=== PATIENT | male | born 1970 | race Hispanic/Latino ===

== ENCOUNTER → 2022-11-18 10:16 | Outpatient (CLI) | payer OTHER, SELFPAY | PROVIDERS: Family Provider Nurse Practitioner Family; PCP Family Medicine; Referring Provider Family Medicine; Visit Provider Surgery | DX: I83.023 Varicose veins of left lower extremity with ulcer of ankle (principal); L97.322 Non-pressure chronic ulcer of left ankle with fat layer exposed; M25.572 Pain in left ankle and joints of left foot | CPT/HCPCS: 11042; 87070; 87075; 87077; 87205; 99203; 99213 ==

== ENCOUNTER → 2022-11-23 10:17 | Outpatient (CLI) | payer OTHER, MEDICAID, SELFPAY | PROVIDERS: Family Provider Nurse Practitioner Family; PCP Family Medicine; Referring Provider Nurse Practitioner Family; Visit Provider Surgery | DX: I87.2 Venous insufficiency (chronic) (peripheral) (principal); L97.322 Non-pressure chronic ulcer of left ankle with fat layer exposed | CPT/HCPCS: 29581 ==

== ENCOUNTER → 2022-11-25 10:08 | Outpatient (CLI) | payer OTHER, MEDICAID, SELFPAY | PROVIDERS: Family Provider Nurse Practitioner Family; PCP Family Medicine; Referring Provider Nurse Practitioner Family; Visit Provider Surgery | DX: I83.023 Varicose veins of left lower extremity with ulcer of ankle (principal); L97.322 Non-pressure chronic ulcer of left ankle with fat layer exposed | CPT/HCPCS: 11042 ==

== ENCOUNTER → 2022-12-03 10:52 | Outpatient (CLI) | payer OTHER, SELFPAY | PROVIDERS: Family Provider Nurse Practitioner Family; PCP Family Medicine; Referring Provider Family Medicine; Visit Provider Physician Assistant | DX: S91.002A Unspecified open wound, left ankle, initial encounter (principal); I83.023 Varicose veins of left lower extremity with ulcer of ankle; I87.2 Venous insufficiency (chronic) (peripheral); L97.322 Non-pressure chronic ulcer of left ankle with fat layer exposed; M25.572 Pain in left ankle and joints of left foot | CPT/HCPCS: 11042; 73610; 87070; 87075; 87077; 87186; 87205; 99214 ==

== ENCOUNTER → 2022-12-03 12:04 | Outpatient (CLI) | payer OTHER, MEDICAID, SELFPAY ==
--- NOTE | 2022-12-03 12:05 | DI.RAD.S_ITS ---
PROCEDURE: XR ANKLE LT MIN 3V INDICATIONS: non-healing ulcer on left lower leg/ankle TECHNIQUE: 3 views of the ankle were acquired. COMPARISON: None. FINDINGS: Bones: No fractures or dislocations. Ankle mortise is normally aligned. No suspicious bony lesions. Soft tissues: No tibiotalar joint effusion. Achilles tendon appears normal. IMPRESSION: Normal left ankle Dictated by: James Lockhart M.D. on 12/03/2022 at 14:41 Approved by: James Lockhart M.D. on 12/03/2022 at 14:43
== END ==
PROVIDERS: Family Provider Nurse Practitioner Family; PCP Family Medicine; Referring Provider Physician Assistant; Visit Provider Physician Assistant
DX: S91.002A Unspecified open wound, left ankle, initial encounter (principal)
CPT/HCPCS: 73610

== ENCOUNTER → 2022-12-10 10:12 | Outpatient (CLI) | payer OTHER, MEDICAID, SELFPAY | PROVIDERS: Family Provider Nurse Practitioner Family; PCP Family Medicine; Referring Provider Nurse Practitioner Family; Visit Provider Surgery | DX: L97.322 Non-pressure chronic ulcer of left ankle with fat layer exposed (principal); E11.622 Type 2 diabetes mellitus with other skin ulcer; I83.023 Varicose veins of left lower extremity with ulcer of ankle; R60.0 Localized edema | CPT/HCPCS: 11042; 99214 ==

== ENCOUNTER → 2022-12-21 13:28 | Outpatient (CLI) | payer OTHER, MEDICAID, SELFPAY | PROVIDERS: Family Provider Nurse Practitioner Family; PCP Family Medicine; Referring Provider Nurse Practitioner Family; Visit Provider Surgery | DX: I83.023 Varicose veins of left lower extremity with ulcer of ankle (principal); L97.322 Non-pressure chronic ulcer of left ankle with fat layer exposed; E11.622 Type 2 diabetes mellitus with other skin ulcer; M25.572 Pain in left ankle and joints of left foot; R60.0 Localized edema | CPT/HCPCS: 11042 ==

== ENCOUNTER → 2022-12-27 08:00 | Outpatient (CLI) | payer OTHER, MEDICAID, SELFPAY ==
[2022-12-27 09:10] LABS: Hemoglobin A1C% w Est Avg Glu 9.1 % (4.0-6.0)
== END ==
PROVIDERS: Family Provider Nurse Practitioner Family; PCP Family Medicine; Referring Provider Surgery; Visit Provider Surgery
DX: E11.9 Type 2 diabetes mellitus without complications (principal); I83.009 Varicose veins of unspecified lower extremity with ulcer of unspecified site
CPT/HCPCS: 36415; 83036

== ENCOUNTER → 2023-01-03 08:35 | Outpatient (CLI) | payer OTHER, MEDICAID, SELFPAY | PROVIDERS: Family Provider Nurse Practitioner Family; PCP Family Medicine; Referring Provider Nurse Practitioner Family; Visit Provider Surgery | DX: L97.322 Non-pressure chronic ulcer of left ankle with fat layer exposed (principal); I87.2 Venous insufficiency (chronic) (peripheral); R60.0 Localized edema; E11.621 Type 2 diabetes mellitus with foot ulcer; F17.210 Nicotine dependence, cigarettes, uncomplicated | CPT/HCPCS: 11042; 99213 ==

== ENCOUNTER → 2023-01-21 09:02 | Outpatient (CLI) | payer OTHER, MEDICAID, SELFPAY | PROVIDERS: Family Provider Nurse Practitioner Family; PCP Family Medicine; Referring Provider Nurse Practitioner Family; Visit Provider Surgery | DX: I83.023 Varicose veins of left lower extremity with ulcer of ankle (principal); L97.322 Non-pressure chronic ulcer of left ankle with fat layer exposed | CPT/HCPCS: 29581; 99213 ==

== ENCOUNTER → 2023-01-27 09:52 | Outpatient (CLI) | payer OTHER, MEDICAID, SELFPAY | PROVIDERS: Family Provider Nurse Practitioner Family; PCP Family Medicine; Referring Provider Nurse Practitioner Family; Visit Provider Surgery | DX: I83.023 Varicose veins of left lower extremity with ulcer of ankle (principal) | CPT/HCPCS: 29581; 99213 ==

== ENCOUNTER 2024-08-31 10:24 | Outpatient (CLI) | payer OTHER, SELFPAY ==
--- NOTE | 2024-08-31 | PATH_ITS ---
Note [facility] Accession Number: [id number] TESTS RESULT FLAG UNITS REF RANGE LAB Clinician Provided Cytology Information No. of containers..01 Other (Miscellaneous) Source: ASCITES DIAGNOSIS: ASCITES NEGATIVE FOR MALIGNANT CELLS. REACTIVE MESOTHELIAL CELLS ARE PRESENT. THIS INTERPRETATION INCLUDES EVALUATION OF A CELL BLOCK. Pathologist ICD10: K70.31 Signed out by: Jessica Lagos DO, Pathologist NPI- [id number] Performed by: Derek Dill, House Director ([facility]) Gross description: 50 CC, YELLOW, CLOUDY RECEIVED: FRESH IN BLUE CAP CONTAINER.VO /VDU 09/03/2024 0853 Local FLAG LEGEND: L-Low Normal,H-High Normal,LL-Alert Low,HH-Alert High <-Panic Low,>-Panic High,A-Abnormal,AA-Critical Abnormal Performed at: 01 =Z [facility] [address], [place] [address] Ventura Holcomb MD, Performed at: 01 [facility] [address], [place], [place] [id number] MD Ventura Holcomb MD Phone: [phone]
--- NOTE | 2024-08-31 10:26 | DI.US.S_ITS ---
PROCEDURE: US PARACENTESIS W/ALBUMIN INDICATIONS: CIRRHOSIS/ASCITES - DIAGNOSTIC CYTOLOGY TECHNIQUE: The indications, alternatives, benefits, risks, and complications of the procedure were explained to the patient. Written informed consent was obtained and placed in the chart. The abdomen and pelvis were examined sonographically, and an appropriate site was chosen for paracentesis. The skin was prepared and draped in the usual sterile fashion, and 1% lidocaine was infiltrated from the skin down through the peritoneal surface. A 19-gauge catheter-covered needle was then introduced into the peritoneal space, the catheter was advanced and the needle was withdrawn, and thereafter peritoneal fluid was withdrawn. The catheter was then removed and a dressing was applied. The fluid was discarded if the clinician did not order diagnostic testing of the fluid. COMPARISON: None. FINDINGS: Access site: Right lower quadrant Needle: One-Step centesis catheter with introducer needle. Fluid volume and description: 3.9 L clear yellow fluid Fluid sent for diagnostic testing: Yes, labs per ordering provider Medications: 1% lidocaine for local anaesthesia. Complications: None. IMPRESSION: Successful ultrasound-guided paracentesis. Approved by: Josias Falk M.D. on 08/31/2024 at 16:01
[2024-08-31 12:10] VITALS: BP 151/75; PULSE 88; RESP 23; TEMP 36.6; O2SAT 99
[2024-08-31 13:10] VITALS: BP 146/76; PULSE 85; RESP 22; O2SAT 99
[2024-08-31 13:15] VITALS: BP 144/68; PULSE 86; RESP 22; O2SAT 98
[2024-08-31 13:30] VITALS: BP 145/67; PULSE 86; RESP 20; O2SAT 98
[2024-08-31 13:45] VITALS: BP 151/70; PULSE 88; RESP 20; O2SAT 99
[2024-08-31 13:50] VITALS: BP 151/70; PULSE 84; RESP 20; O2SAT 98
== END 2024-08-31 14:05 | disposition home or self-care (01) ==
PROVIDERS: Family Provider Nurse Practitioner Family; PCP Family Medicine; Referring Provider Physician Assistant; Visit Provider Physician Assistant
DX: K70.31 Alcoholic cirrhosis of liver with ascites (principal)
CPT/HCPCS: 49083

== ENCOUNTER 2024-09-17 08:15 | Inpatient (IN) | payer OTHER, SELFPAY ==
[2024-09-17] VITALS (32 sets, daily range): BP systolic 99–161; BP diastolic 55–85; PULSE 66–81; RESP 17–28; TEMP 36.7–36.9; O2SAT 95–100; BMI 27.8
--- NOTE | 2024-09-17 08:47 | ED.GENADULT ---
HPI - General Adult General Chief complaint: Abdominal Pain Stated complaint: pain, nausea, AMBROSE, swelling abd- came from imaging Time Seen by Provider: 09/17/24 08:47 Source: patient Limitations: no limitations History of Present Illness HPI narrative: Pt is a 54 y/o m with history of cirrhosis and ascites, presenting from scheduled outpatient paracentesis from radiology due to concern for acute illness. PAtient endorsing severe abdominal pain and distension. He has been having diffuse edema in his lower extremities and groin as well when he is standing for a long time. Denies fevers, does have some nausea without vomiting. No chest pain or shortness of breath. Related Data Allergies Allergy/AdvReac Type Severity Reaction Status Date / Time lidocaine [From LidoPatch] AdvReac Mild Rash Verified 09/17/24 08:49 menthol [From LidoPatch] AdvReac Mild Rash Verified 09/17/24 08:49 Patient History Social History Smoking Status: Current some day smoker Exam Initial Vital Signs Initial Vital Signs: Vital Signs Pulse Rate 81 09/17/24 08:26 Pulse Oximetry 100 09/17/24 08:26 Const General: cooperative, No acute distress and ill appearing [facility] Head: normocephalic and atraumatic Eyes General: Yes appearance normal, both eyes and all related structures Resp Effort & Inspection: normal respiratory effort and no respiratory distress Cardio Rate: regular rate Rhythm: regular rhythm GI Inspection: distended Palpation: No mass, tender and ascites Testes: no testicular tenderness Skin General: warm Neuro Cognition: normal cognition Extrem General: full ROM Psych Mental Status: mental status grossly normal Course Orders Ordered: ED Orders 09/17/24 16:13 US abdomen limited Stat 09/17/24 18:00 Complete Blood Count AUTO DIFF Stat Lactate (Lactic Acid) Stat Ceftriaxone Sodium 1,000 mg/ (Sodium Chloride) 100 mls @ 200 mls/hr IV Q24H DOROTA Last Admin: 09/17/24 20:19 Dose: 200 mls/hr Documented By: NICHOLAS Naloxone HCl (Naloxone 0.4 Mg/Ml Vial) 0.2 mg IV Q2MIN PRN PRN Reason: Opiate Reversal Ondansetron HCl (Ondansetron 4 Mg/2 Ml Inj) 4 mg IV NOW PRN PRN Reason: Nausea And Vomiting Last Admin: 09/17/24 09:35 Dose: 4 mg Documented By: MARISOL Ondansetron HCl (Ondansetron 4 Mg Odt) 4 mg PO NOW PRN PRN Reason: Nausea And Vomiting Oxycodone HCl (Oxycodone Ir 5 Mg Tablet) 5 mg PO Q3HR PRN PRN Reason: Pain, Moderate (4-6) Oxycodone HCl (Oxycodone Ir 10 Mg Tablet) 10 mg PO Q3HR PRN PRN Reason: Pain, Severe (7-10) Discontinued Medications Diphenhydramine HCl (Diphenhydramine 50 Mg/Ml Vial) 25 mg IV NOW ONE Stop: 09/17/24 18:17 Last Admin: 09/17/24 18:28 Dose: 25 mg Documented By: MARISOL Vancomycin HCl 1,000 mg/ (Sodium Chloride) 250 mls @ 250 mls/hr IV NOW ONE Stop: 09/17/24 17:25 Last Infusion: 09/17/24 20:21 Dose: Infused Documented By: Admin: 09/17/24 19:03 Dose: 250 mls/hr Documented By: MARISOL Piperacillin Sod/Tazobactam (Sod 4.5 gm/ Sodium Chloride) 100 mls @ 200 mls/hr IV NOW ONE Stop: 09/17/24 17:25 Last Infusion: 09/17/24 19:06 Dose: Infused Documented By: Admin: 09/17/24 18:01 Dose: 200 mls/hr Documented By: MARISOL Lidocaine/Epinephrine (Lidocaine 2% W/Epi Inj 10 Ml Vial) 10 ml INJ NOW ONE Stop: 09/17/24 09:08 Last Admin: 09/17/24 09:35 Dose: 10 ml Documented By: MARISOL Morphine Sulfate (Morphine 4 Mg/Ml Inj) 4 mg IV NOW ONE Stop: 09/17/24 09:06 Last Admin: 09/17/24 09:35 Dose: 4 mg Documented By: MARISOL Morphine Sulfate (Morphine 4 Mg/Ml Inj) 4 mg IV NOW ONE Stop: 09/17/24 15:14 Last Admin: 09/17/24 15:41 Dose: 4 mg Documented By: MARISOL Ondansetron HCl (Ondansetron 4 Mg/2 Ml Inj) 4 mg IV NOW ONE Stop: 09/17/24 18:13 Last Admin: 09/17/24 18:28 Dose: 4 mg Documented By: MARISOL Vital Signs Vital signs: Vital Signs - 8 hr 09/17/24 13:25 09/17/24 13:25 09/17/24 13:30 Temperature Pulse Rate 76 Respiratory Rate Blood Pressure 99/56 L 102/56 L Pulse Oximetry 100 Oxygen Delivery Method Room Air 09/17/24 13:30 09/17/24 14:00 09/17/24 14:00 Temperature Pulse Rate 72 79 Respiratory Rate 17 19 Blood Pressure 102/55 L Pulse Oximetry 98 99 Oxygen Delivery Method 09/17/24 14:30 09/17/24 14:30 09/17/24 15:00 Temperature Pulse Rate 77 Respiratory Rate Blood Pressure 117/59 L 126/56 L Pulse Oximetry 100 Oxygen Delivery Method 09/17/24 15:00 09/17/24 15:26 09/17/24 15:26 Temperature Pulse Rate 80 78 Respiratory Rate 20 22 Blood Pressure 117/58 L Pulse Oximetry 95 100 Oxygen Delivery Method Room Air 09/17/24 15:30 09/17/24 15:30 09/17/24 16:00 Temperature Pulse Rate 74 Respiratory Rate 19 Blood Pressure 117/56 L 113/59 L Pulse Oximetry 99 Oxygen Delivery Method 09/17/24 16:00 09/17/24 16:30 09/17/24 17:00 Temperature Pulse Rate 75 80 72 Respiratory Rate 19 25 H 17 Blood Pressure Pulse Oximetry 98 98 Oxygen Delivery Method 09/17/24 17:30 09/17/24 17:57 09/17/24 17:57 Temperature Pulse Rate 72 78 Respiratory Rate 20 20 Blood Pressure 112/58 L Pulse Oximetry 96 98 Oxygen Delivery Method 09/17/24 18:00 09/17/24 18:30 09/17/24 18:30 Temperature 98.5 F Pulse Rate 72 80 Respiratory Rate 22 Blood Pressure 127/64 Pulse Oximetry 97 97 Oxygen Delivery Method Medical Decision Making Differential Diagnosis Differential Diagnosis: SBP, ascites, cirrhosis, sepsis, UTI Medical Records Medical records reviewed: Yes I reviewed the patient's medical records. Medical records narrative: Cytology report from 08/31/2024 negative for malignant cells on ascitic fluid Lab Data Lab results reviewed: Yes I reviewed the patient's lab results. Lab results narrative: without leukocytosis, elevated lactate or inflammatory markers 09/17/24 18:00 09/17/24 09:58 Labs: Lab Results 09/17/24 09/17/24 09/17/24 Range/Units 08:38 08:38 08:38 WBC (4.5-11.0) X10^3/uL RBC (4.5-5.9) X10^6/uL Hgb (13.5-17.5) g/dL Hct (41-53) % MCV (80-100) fL MCH (26-34) PG MCHC (30-36) % RDW (11.6-14.8) % Plt Count (150-400) X10^3/uL Neut % (Auto) (50-75) % Lymph % (Auto) (25-40) % [place] % (Auto) (3-14) % Eos % (Auto) (2-4) % Baso % (Auto) (0-2) % Neut # (Auto) (7136-1847) /uL Lymph # (Auto) (3753-4285) /uL [place] # (Auto) (0-900) /uL Eos # (Auto) (0-450) /uL Baso # (Auto) (0-100) /uL Platelet Estimate RBC Morphology Anisocytosis Microcytosis ESR (0-15) MM/HR PT (9.4-12.5) SECONDS INR (0.9-1.3) APTT (25.1-36.5) SECONDS Sodium (137-145) mmol/L Potassium (3.4-5.1) mmol/L Chloride (98-107) mmol/L Carbon Dioxide (22-32) mmol/L BUN (9-20) mg/dL Creatinine (0.66-1.25) mg/dL Estimated GFR (>60) mL/min BUN/Creatinine Ratio (6-22) Glucose (70-99) mg/dL Lactate (0.7-2.1) mmol/L Calcium (8.4-10.2) mg/dL Total Bilirubin (0.2-1.3) mg/dL AST (17-59) IU/L ALT (<50) IU/L Alkaline Phosphatase (38-126) U/L C-Reactive Protein (<1.0) mg/dL NT-Pro-B Natriuret Pep (<125) pg/mL Total Protein (6.3-8.2) g/dL Albumin (3.5-5.0) g/dL Globulin (1.7-4.1) g/dL Albumin/Globulin Ratio (1.0-2.8) Lipase (23-300) U/L Procalcitonin (<0.5) ng/mL Urine Color Yellow Urine Appearance Cloudy Urine pH 6.5 (4.5-8.0) Ur Specific [place] 1.010 (1.000-1.035) Urine Protein Negative (Negative) Urine Glucose (UA) 1+ H (Negative) g/dL Urine Ketones Negative (NEGATIVE) Urine Occult Blood 1+ H (Negative) Urine Nitrate Negative (Negative) Urine Bilirubin Negative (NEGATIVE) Urine Urobilinogen 0.2 (0.2) E.U./dL Ur Leukocyte Esterase 3+ H (NEGATIVE) Urine RBC 0-1/hpf 0-1/hpf (0-5/HPF) Urine WBC 30-100/hpf H 30-100/hpf H (0-5/HPF) Ur Squamous Epith Cells None seen (0-5/HPF) Urine Bacteria (None) Ur Culture Indicated? Vol Urine Centrifuged 09/17/24 09/17/24 09/17/24 Range/Units 08:38 08:38 08:38 WBC (4.5-11.0) X10^3/uL RBC (4.5-5.9) X10^6/uL Hgb (13.5-17.5) g/dL Hct (41-53) % MCV (80-100) fL MCH (26-34) PG MCHC (30-36) % RDW (11.6-14.8) % Plt Count (150-400) X10^3/uL Neut % (Auto) (50-75) % Lymph % (Auto) (25-40) % [place] % (Auto) (3-14) % Eos % (Auto) (2-4) % Baso % (Auto) (0-2) % Neut # (Auto) (3642-0320) /uL Lymph # (Auto) (4367-5582) /uL [place] # (Auto) (0-900) /uL Eos # (Auto) (0-450) /uL Baso # (Auto) (0-100) /uL Platelet Estimate RBC Morphology Anisocytosis Microcytosis ESR (0-15) MM/HR PT (9.4-12.5) SECONDS INR (0.9-1.3) APTT (25.1-36.5) SECONDS Sodium (137-145) mmol/L Potassium (3.4-5.1) mmol/L Chloride (98-107) mmol/L Carbon Dioxide (22-32) mmol/L BUN (9-20) mg/dL Creatinine (0.66-1.25) mg/dL Estimated GFR (>60) mL/min BUN/Creatinine Ratio (6-22) Glucose (70-99) mg/dL Lactate (0.7-2.1) mmol/L Calcium (8.4-10.2) mg/dL Total Bilirubin (0.2-1.3) mg/dL AST (17-59) IU/L ALT (<50) IU/L Alkaline Phosphatase (38-126) U/L C-Reactive Protein (<1.0) mg/dL NT-Pro-B Natriuret Pep (<125) pg/mL Total Protein (6.3-8.2) g/dL Albumin (3.5-5.0) g/dL Globulin (1.7-4.1) g/dL Albumin/Globulin Ratio (1.0-2.8) Lipase (23-300) U/L Procalcitonin (<0.5) ng/mL Urine Color Urine Appearance Urine pH (4.5-8.0) Ur Specific [place] (1.000-1.035) Urine Protein (Negative) Urine Glucose (UA) (Negative) g/dL Urine Ketones (NEGATIVE) Urine Occult Blood (Negative) Urine Nitrate (Negative) Urine Bilirubin (NEGATIVE) Urine Urobilinogen (0.2) E.U./dL Ur Leukocyte Esterase (NEGATIVE) Urine RBC (0-5/HPF) Urine WBC (0-5/HPF) Ur Squamous Epith Cells None seen (0-5/HPF) Urine Bacteria Many (>30) H Many (>30) H (None) Ur Culture Indicated? Specimen cultured Vol Urine Centrifuged 10ml (spun) 10ml (spun) 09/17/24 09/17/24 09/17/24 Range/Units 08:53 09:58 18:00 WBC 8.6 8.5 9.0 (4.5-11.0) X10^3/uL RBC 4.54 4.56 4.66 (4.5-5.9) X10^6/uL Hgb 10.2 L 10.1 L 10.3 L (13.5-17.5) g/dL Hct 31.7 L 31.7 L 32.4 L (41-53) % MCV 69.8 L 69.6 L 69.4 L (80-100) fL MCH 22.4 L 22.2 L 22.0 L (26-34) PG MCHC 32.1 31.9 31.7 (30-36) % RDW 27.3 H 27.7 H 27.8 H (11.6-14.8) % Plt Count 113 L 116 L 108 L (150-400) X10^3/uL Neut % (Auto) 79.1 H 78.7 H 81.0 H (50-75) % Lymph % (Auto) 11.4 L 11.2 L 10.0 L (25-40) % [place] % (Auto) 7.9 7.8 7.1 (3-14) % Eos % (Auto) 1.2 L 1.5 L 1.4 L (2-4) % Baso % (Auto) 0.4 0.8 0.5 (0-2) % Neut # (Auto) 6800 6700 7300 H (8230-6407) /uL Lymph # (Auto) 1000 L 900 L 900 L (9613-3157) /uL [place] # (Auto) 700 700 600 (0-900) /uL Eos # (Auto) 100 100 100 (0-450) /uL Baso # (Auto) 0 100 0 (0-100) /uL Platelet Estimate Decreased on smear RBC Morphology Not Reportable See below Anisocytosis 2+ H 3+ H Microcytosis 2+ H ESR 18 H (0-15) MM/HR PT 17.2 H (9.4-12.5) SECONDS INR 1.5 H (0.9-1.3) APTT 37 H (25.1-36.5) SECONDS Sodium 127 L 128 L (137-145) mmol/L Potassium 4.3 4.4 (3.4-5.1) mmol/L Chloride 97 L 98 (98-107) mmol/L Carbon Dioxide 22 20 L (22-32) mmol/L BUN 6 L 6 L (9-20) mg/dL Creatinine 0.66 0.61 L (0.66-1.25) mg/dL Estimated GFR > 60 > 60 (>60) mL/min BUN/Creatinine Ratio 9.1 9.8 (6-22) Glucose 245 H 211 H (70-99) mg/dL Lactate 1.1 1.0 (0.7-2.1) mmol/L Calcium 8.7 8.7 (8.4-10.2) mg/dL Total Bilirubin 0.9 1.1 (0.2-1.3) mg/dL AST 45 47 (17-59) IU/L ALT 27 28 (<50) IU/L Alkaline Phosphatase 137 H 151 H (38-126) U/L C-Reactive Protein 0.5 (<1.0) mg/dL NT-Pro-B Natriuret Pep 60 (<125) pg/mL Total Protein 7.0 7.1 (6.3-8.2) g/dL Albumin 3.8 3.8 (3.5-5.0) g/dL Globulin 3.2 3.3 (1.7-4.1) g/dL Albumin/Globulin Ratio 1.2 1.2 (1.0-2.8) Lipase 85 (23-300) U/L Procalcitonin 0.078 (<0.5) ng/mL Urine Color Urine Appearance Urine pH (4.5-8.0) Ur Specific [place] (1.000-1.035) Urine Protein (Negative) Urine Glucose (UA) (Negative) g/dL Urine Ketones (NEGATIVE) Urine Occult Blood (Negative) Urine Nitrate (Negative) Urine Bilirubin (NEGATIVE) Urine Urobilinogen (0.2) E.U./dL Ur Leukocyte Esterase (NEGATIVE) Urine RBC (0-5/HPF) Urine WBC (0-5/HPF) Ur Squamous Epith Cells (0-5/HPF) Urine Bacteria (None) Ur Culture Indicated? Vol Urine Centrifuged Urine Dip Bedside Urine Glucose 500 mg/dl Bedside Urine Bilirubin - Negative Bedside Urine Ketone - Negative Urine Specific [place] 1.015 Bedside Urine Occult Blood + Bedside Urine pH 6.5 Bedside Urine Protein - Negative Bedside Urine Urobilinogen - Negative Bedside Urine Nitrite + Positive Bedside Urine Leukocytes +++ 500 Esterase Point of care testing: Urine Dip Bedside Urine Glucose 500 mg/dl Bedside Urine Bilirubin - Negative Bedside Urine Ketone - Negative Urine Specific [place] 1.015 Bedside Urine Occult Blood + Bedside Urine pH 6.5 Bedside Urine Protein - Negative Bedside Urine Urobilinogen - Negative Bedside Urine Nitrite + Positive Bedside Urine Leukocytes +++ [address] scan - abdomen/pelvis: Attestation: I personally reviewed and interpreted this imaging study as follows: My Impression: ct demonstrating ascites, without SBO, no signficant hydronephrosis Radiologist's Impression: [address] [address] [address] Scan Report Signed Patient: Kristan Daley MR#: [id number] : 1970 Acct:[id number] Age/Sex: 54 / M Date of Service: 09/17/24 Loc: ED Accession Number: [id number] Procedure: CT abdomen pelvis w con Ordering Provider: Renea Natarajan MD PROCEDURE: CT ABDOMEN PELVIS W CON INDICATIONS: Peritonitis TECHNIQUE: After the administration of intravenous contrast, axial sections acquired from the lung bases to the pubic symphysis. Coronal and sagittal reformats were performed. For radiation dose reduction, the following was used: automated exposure control, adjustment of mA and/or kV according to patient size. COMPARISON: [facility], CT, CT ANGIO CHEST PE, 05/27/2024, 20:34. FINDINGS: Image quality: Diagnostic. Lower Chest: No significant findings. ABDOMEN: Liver: Cirrhotic appearing liver is seen. No gross solid appearing hepatic lesion. Gallbladder: Gallbladder is surgically absent. Biliary ducts: No biliary dilation. Pancreas: No ductal dilation. Spleen: There is splenomegaly, no discrete splenic lesion. Adrenal Glands: No adrenal nodules. Kidneys and Ureters: No hydronephrosis. No solid mass. No complex renal cystic lesion which requires follow up. Stomach and Bowel: There is no bowel obstruction. No abnormal bowel wall thickening or mesenteric fat stranding. No abscess collection. Sigmoid diverticulosis without CT evidence of acute diverticulitis. Peritoneum: Small amount of ascites fluid is noted in abdomen and pelvis. Mild peritoneal thickening is also seen without definite peritoneal masses. No peritoneal free air. Ventral Wall: Small umbilical hernia is seen containing fat only. Abdominal Nodes: No retroperitoneal or mesenteric adenopathy by size criteria. Vessels: Aorta and inferior vena cava are normal in size. PELVIS: Pelvic Organs: Unremarkable. Bladder: Mild diffuse bladder wall thickening, no discrete bladder wall mass or calcified bladder stones. Pelvic Nodes: No enlarged lymph nodes. Subcentimeter lymph nodes are seen in bilateral inguinal region likely reactive in nature. Mild generalized anasarca is seen. Miscellaneous: No inguinal hernias are seen. Bones: No aggressive osseous abnormality. IMPRESSION: 1. Small amount of ascites fluid and peritoneal thickening concerning for peritonitis. Small mesenteric lymph nodes are also seen. No peritoneal retroperitoneal lymphadenopathy by size criteria. No peritoneal free air. 2. No bowel obstruction. No abnormal bowel wall thickening. No abscess collection. 3. Cirrhotic appearing liver. No discrete hepatic lesion. Mild splenomegaly, no discrete splenic lesion. Dictated by: Casey Cox M.D. on 09/17/2024 at 9:31 Approved by: Casey Cox M.D. on 09/17/2024 at 9:37 MDM Narrative Medical decision making narrative: History and exam as above. Presenting with abdominal pain and distension in the setting of known cirrhosis complicated by ascites and requiring recurrent paracentesis. Exam is concerning given diffuse abdominal tenderness to palpation, however, patient is overall in no acute distress and with reassuring vitals. Differential includes recurrent ascites, SBP, UTI, nephrolithiasis, viral illness, gastroenteritis, SBO, aortic pathology. Plan for labs including CBC, cMP, mag, lipase, lactate, esr, crp, urinalysis, CT abd pelvis. Labs largely unremarkable, ct with concern for possible peritonitis. PAtient remains stable and without evidence of systemic infection or inflammatory response/SIRS. Radiology consulted to perform paracentesis however following their evaluation no appropriate pocket was identifiable on ultrasound - defered para for safety. Will plan to initiate broad spectrum antibiotics to cover for possible SBP, and admission for further management. PAtient presentation discussed with admitting provider, accepted for admission. Discharge Plan Departure Patient Disposition: Admitted As Inpatient Clinical Impression: Peritonitis (acute) generalized Admit Date/Time: 09/17/24 18:34 Admit Provider: Zoltan Sullivan
[2024-09-17 08:50] LABS: RBC Urine 0-1/HPF (0-5/HPF); Urine Volume 10mL (spun)
[2024-09-17 08:51] LABS: Bacteria Urine Many (>30); Squamous Epithelial Cell Urine None Seen (0-5/HPF); WBC Urine 30-100/HPF (0-5/HPF)
[2024-09-17 09:00] LABS: Add Manual Diff / Slide Review NO; Basophils Absolute Auto 0 /uL (0-100); Basophils Percent Auto 0.4 % (0-2); Eosinophils Absolute Auto 100 /uL (0-450); Eosinophils Percent Auto 1.2 % (2-4); Hematocrit 31.7 % (41-53); Hemoglobin 10.2 g/dL (13.5-17.5); Lymphocytes Absolute Auto 1000 /uL (1100-4500); Lymphocytes Percent Auto 11.4 % (25-40); Mean Corpuscular HGB Conc 32.1 % (30-36); Mean Corpuscular Hemoglobin 22.4 PG (26-34); Mean Corpuscular Volume 69.8 fL (80-100); Monocytes Absolute Auto 700 /uL (0-900); Monocytes Percent Auto 7.9 % (3-14); Neutrophils Absolute Auto 6800 /uL (1500-7000); Neutrophils Percent Auto 79.1 % (50-75); Platelet Count 113 X10^3/uL (150-400); Red Blood Cell Count 4.54 X10^6/uL (4.5-5.9); Red Cell Distribution Width 27.3 % (11.6-14.8); White Blood Cell Count 8.6 X10^3/uL (4.5-11.0)
--- NOTE | 2024-09-17 09:05 | DI.CT.S_ITS ---
PROCEDURE: CT ABDOMEN PELVIS W CON INDICATIONS: Peritonitis TECHNIQUE: After the administration of intravenous contrast, axial sections acquired from the lung bases to the pubic symphysis. Coronal and sagittal reformats were performed. For radiation dose reduction, the following was used: automated exposure control, adjustment of mA and/or kV according to patient size. COMPARISON: [facility], CT, CT ANGIO CHEST PE, 05/27/2024, 20:34. FINDINGS: Image quality: Diagnostic. Lower Chest: No significant findings. ABDOMEN: Liver: Cirrhotic appearing liver is seen. No gross solid appearing hepatic lesion. Gallbladder: Gallbladder is surgically absent. Biliary ducts: No biliary dilation. Pancreas: No ductal dilation. Spleen: There is splenomegaly, no discrete splenic lesion. Adrenal Glands: No adrenal nodules. Kidneys and Ureters: No hydronephrosis. No solid mass. No complex renal cystic lesion which requires follow up. Stomach and Bowel: There is no bowel obstruction. No abnormal bowel wall thickening or mesenteric fat stranding. No abscess collection. Sigmoid diverticulosis without CT evidence of acute diverticulitis. Peritoneum: Small amount of ascites fluid is noted in abdomen and pelvis. Mild peritoneal thickening is also seen without definite peritoneal masses. No peritoneal free air. Ventral Wall: Small umbilical hernia is seen containing fat only. Abdominal Nodes: No retroperitoneal or mesenteric adenopathy by size criteria. Vessels: Aorta and inferior vena cava are normal in size. PELVIS: Pelvic Organs: Unremarkable. Bladder: Mild diffuse bladder wall thickening, no discrete bladder wall mass or calcified bladder stones. Pelvic Nodes: No enlarged lymph nodes. Subcentimeter lymph nodes are seen in bilateral inguinal region likely reactive in nature. Mild generalized anasarca is seen. Miscellaneous: No inguinal hernias are seen. Bones: No aggressive osseous abnormality. IMPRESSION: 1. Small amount of ascites fluid and peritoneal thickening concerning for peritonitis. Small mesenteric lymph nodes are also seen. No peritoneal retroperitoneal lymphadenopathy by size criteria. No peritoneal free air. 2. No bowel obstruction. No abnormal bowel wall thickening. No abscess collection. 3. Cirrhotic appearing liver. No discrete hepatic lesion. Mild splenomegaly, no discrete splenic lesion. Dictated by: Casey Cox M.D. on 09/17/2024 at 9:31 Approved by: Casey Cox M.D. on 09/17/2024 at 9:37
[2024-09-17 09:12] LABS: Alanine Aminotransferase 27 IU/L (<50); Albumin 3.8 g/dL (3.5-5.0); Albumin Globulin Ratio 1.2 (1.0-2.8); Alkaline Phosphatase 137 U/L (38-126); Aspartate Aminotransferase 45 IU/L (17-59); BUN Creatinine Ratio 9.1 (6-22); Bilirubin Total 0.9 mg/dL (0.2-1.3); Blood Urea Nitrogen 6 mg/dL (9-20); Calcium 8.7 mg/dL (8.4-10.2); Carbon Dioxide 22 mmol/L (22-32); Chloride 97 mmol/L (98-107); Estimated Glomerular Filt Rate > 60 mL/min (>60); Globulin 3.2 g/dL (1.7-4.1); Glucose 245 mg/dL (70-99); HEMOLYSIS < 15 (0-50); Lipase 85 U/L (23-300); Potassium 4.3 mmol/L (3.4-5.1); Sodium 127 mmol/L (137-145)
[2024-09-17 09:15] LABS: Anisocytosis 2+
[2024-09-17] MEDS: LIDOCAINE 2% W/EPI INJ 10 ML VIAL INJ (09:35)
[2024-09-17] MEDS: ONDANSETRON 4 MG/2 ML INJ IV ×2 (09:35→18:28)
[2024-09-17] MEDS: MORPHINE 4 MG/ML INJ IV ×2 (09:35→15:41)
--- NOTE | 2024-09-17 09:47 | EKG_ITS ---
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
[2024-09-17 10:08] LABS: Add Manual Diff / Slide Review NO; Basophils Absolute Auto 100 /uL (0-100); Basophils Percent Auto 0.8 % (0-2); Eosinophils Absolute Auto 100 /uL (0-450); Eosinophils Percent Auto 1.5 % (2-4); Hematocrit 31.7 % (41-53); Hemoglobin 10.1 g/dL (13.5-17.5); Lymphocytes Absolute Auto 900 /uL (1100-4500); Lymphocytes Percent Auto 11.2 % (25-40); Mean Corpuscular HGB Conc 31.9 % (30-36); Mean Corpuscular Hemoglobin 22.2 PG (26-34); Mean Corpuscular Volume 69.6 fL (80-100); Monocytes Absolute Auto 700 /uL (0-900); Monocytes Percent Auto 7.8 % (3-14); Neutrophils Absolute Auto 6700 /uL (1500-7000); Neutrophils Percent Auto 78.7 % (50-75); Platelet Count 116 X10^3/uL (150-400); Red Blood Cell Count 4.56 X10^6/uL (4.5-5.9); Red Cell Distribution Width 27.7 % (11.6-14.8); White Blood Cell Count 8.5 X10^3/uL (4.5-11.0)
[2024-09-17 10:15] LABS: INR 1.5 (0.9-1.3); Prothrombin Time 17.2 SECONDS (9.4-12.5)
[2024-09-17 10:17] LABS: PTT Partial Thromboplastin Tim 37 SECONDS (25.1-36.5)
[2024-09-17 10:19] LABS: Lactate (Lactic Acid) 1.1 mmol/L (0.7-2.1)
[2024-09-17 10:21] LABS: Alanine Aminotransferase 28 IU/L (<50); Albumin 3.8 g/dL (3.5-5.0); Albumin Globulin Ratio 1.2 (1.0-2.8); Alkaline Phosphatase 151 U/L (38-126); Aspartate Aminotransferase 47 IU/L (17-59); BUN Creatinine Ratio 9.8 (6-22); Bilirubin Total 1.1 mg/dL (0.2-1.3); Blood Urea Nitrogen 6 mg/dL (9-20); C-Reactive Protein Quant 0.5 mg/dL (<1.0); Calcium 8.7 mg/dL (8.4-10.2); Carbon Dioxide 20 mmol/L (22-32); Chloride 98 mmol/L (98-107); Estimated Glomerular Filt Rate > 60 mL/min (>60); Globulin 3.3 g/dL (1.7-4.1); Glucose 211 mg/dL (70-99); HEMOLYSIS < 15 (0-50); Potassium 4.4 mmol/L (3.4-5.1); Sodium 128 mmol/L (137-145); Total Protein 7.1 g/dL (6.3-8.2)
[2024-09-17 10:25] LABS: Erythrocyte Sedimentation Rate 18 MM/HR (0-15)
[2024-09-17 10:28] LABS: NT-proBNP (BNP-Adult 18+) 60 pg/mL (<125)
[2024-09-17 10:35] LABS: Procalcitonin 0.078 ng/mL (<0.5)
[2024-09-17 13:19] LABS: Appearance Urine UA CLOUDY; Bilirubin Urine UA NEGATIVE (NEGATIVE); Color Urine UA YELLOW; Glucose Urine UA 1+ g/dL (Negative); Ketones Urine UA NEGATIVE (NEGATIVE); Leukocyte Esterase Urine UA 3+ (NEGATIVE); Nitrite Urine UA NEGATIVE (Negative); Occult Blood Urine UA 1+ (Negative); Protein Urine UA NEGATIVE (Negative); Urobilinogen Urine UA 0.2 E.U./dL (0.2); pH Urine UA 6.5 (4.5-8.0)
[2024-09-17 13:20] LABS: RBC Urine 0-1/HPF (0-5/HPF); Urine Volume 10mL (spun); WBC Urine 30-100/HPF (0-5/HPF)
[2024-09-17 13:21] LABS: Bacteria Urine Many (>30); Squamous Epithelial Cell Urine None Seen (0-5/HPF)
[2024-09-17 13:22] LABS: Culture Indicated Urine Specimen Cultured
--- NOTE | 2024-09-17 16:13 | DI.US.S_ITS ---
PROCEDURE: US ABDOMEN LIMITED INDICATIONS: ascites TECHNIQUE: Real-time focused scanning was performed of the abdomen, with image documentation. COMPARISON: [facility], CT, CT ABDOMEN PELVIS W CON, 09/17/2024, 9:20. FINDINGS and IMPRESSION: Small volume of ascites without sufficient pocket for safe paracentesis as assessed on real-time evaluation. Findings were discussed with the ordering provider at the time of the exam. Approved by: Josias Falk M.D. on 09/17/2024 at 16:54
[2024-09-17] MEDS: PIPERACILLIN/TAZO 4.5 GM in SODIUM CHLORIDE 0.9% 100 ML IV (18:01)
[2024-09-17 18:16] LABS: Add Manual Diff / Slide Review NO; Basophils Absolute Auto 0 /uL (0-100); Basophils Percent Auto 0.5 % (0-2); Eosinophils Absolute Auto 100 /uL (0-450); Eosinophils Percent Auto 1.4 % (2-4); Hematocrit 32.4 % (41-53); Hemoglobin 10.3 g/dL (13.5-17.5); Lymphocytes Absolute Auto 900 /uL (1100-4500); Mean Corpuscular HGB Conc 31.7 % (30-36); Mean Corpuscular Volume 69.4 fL (80-100); Monocytes Absolute Auto 600 /uL (0-900); Monocytes Percent Auto 7.1 % (3-14); Neutrophils Absolute Auto 7300 /uL (1500-7000); Platelet Count 108 X10^3/uL (150-400); Red Blood Cell Count 4.66 X10^6/uL (4.5-5.9); Red Cell Distribution Width 27.8 % (11.6-14.8)
[2024-09-17] MEDS: diphenhydrAMINE 50 MG/ML VIAL 25 MG IV (18:28)
--- NOTE | 2024-09-17 18:48 | P.HP_ITS ---
History of Present Illness History of Present Illness Date Patient Seen: 09/17/24 Chief complaint: pain, nausea, AMBROSE, swelling abd- came from imaging Narrative: Chief complaint: Abdominal pain likely spontaneous bacterial peritonitis History of present illness: 54-year-old male with Laennec's cirrhosis who gets scheduled out patient paracentesis was sent in because of increasing pain and symptoms for concern of peritonitis by the radiologist. Was evaluated in emergency room found to have very significant pain we had imaging done but there were no pockets of fluid large enough to drain and it was thickening of the mesentery suggesting peritonitis patient was referred for admission Findings in the emergency room significant for white count of 9000 with 81% neutrophils sodium 128 potassium 4.4 urinalysis showed 30-100 white blood cells per high-power field and bacteria Review of systems: No fever or chills weight loss No chest pain palpitations shortness for breath No paresthesias paresis No urinary symptoms Physical exam: Uncomfortable appearing HEENT unremarkable Neck no carotid bruits Heart and lungs clear Abdomen is distended tender to palpation and percussion Neuro nonfocal Extremities 2+ bipedal edema Assessment and plan: Signs and symptoms suggestive of acute peritonitis and possible urinary tract infection for which we will treat with ceftriaxone for both * Ceftriaxone 1 g daily * Blood cultures pending * Analgesia * Urine cultures pending [facility] for [facility] Full code [facility] Social History Smoking Status: Current some day smoker Meds Home Medications and Allergies Allergies Allergy/AdvReac Type Severity Reaction Status Date / Time lidocaine [From LidoPatch] AdvReac Mild Rash Verified 09/17/24 08:49 menthol [From LidoPatch] AdvReac Mild Rash Verified 09/17/24 08:49 Exam Vital Signs (past 8 hours): - 09/17/24 11:00 09/17/24 11:00 09/17/24 11:50 Temperature Pulse Rate 73 74 Respiratory Rate 18 Blood Pressure 101/59 L Pulse Oximetry 98 98 Oxygen Delivery Method 09/17/24 11:52 09/17/24 11:52 09/17/24 12:00 Temperature Pulse Rate 74 66 Respiratory Rate 20 21 Blood Pressure 109/58 L Pulse Oximetry 98 97 Oxygen Delivery Method 09/17/24 12:00 09/17/24 12:30 09/17/24 12:30 Temperature Pulse Rate 67 Respiratory Rate 21 Blood Pressure 119/64 114/66 Pulse Oximetry 97 Oxygen Delivery Method 09/17/24 13:00 09/17/24 13:25 09/17/24 13:25 Temperature Pulse Rate 77 76 Respiratory Rate Blood Pressure 99/56 L Pulse Oximetry 100 100 Oxygen Delivery Method Room Air 09/17/24 13:30 09/17/24 13:30 09/17/24 14:00 Temperature Pulse Rate 72 Respiratory Rate 17 Blood Pressure 102/56 L 102/55 L Pulse Oximetry 98 Oxygen Delivery Method 09/17/24 14:00 09/17/24 14:30 09/17/24 14:30 Temperature Pulse Rate 79 77 Respiratory Rate 19 Blood Pressure 117/59 L Pulse Oximetry 99 100 Oxygen Delivery Method 09/17/24 15:00 09/17/24 15:00 09/17/24 15:26 Temperature Pulse Rate 80 Respiratory Rate 20 Blood Pressure 126/56 L 117/58 L Pulse Oximetry 95 Oxygen Delivery Method Room Air 09/17/24 15:26 09/17/24 15:30 09/17/24 15:30 Temperature Pulse Rate 78 74 Respiratory Rate 22 19 Blood Pressure 117/56 L Pulse Oximetry 100 99 Oxygen Delivery Method 09/17/24 16:00 09/17/24 16:00 09/17/24 16:30 Temperature Pulse Rate 75 80 Respiratory Rate 19 25 H Blood Pressure 113/59 L Pulse Oximetry 98 Oxygen Delivery Method 09/17/24 17:00 09/17/24 17:30 09/17/24 17:57 Temperature Pulse Rate 72 72 Respiratory Rate 17 20 Blood Pressure 112/58 L Pulse Oximetry 98 96 Oxygen Delivery Method 09/17/24 17:57 09/17/24 18:00 Temperature 98.5 F Pulse Rate 78 72 Respiratory Rate 20 Blood Pressure Pulse Oximetry 98 97 Oxygen Delivery Method Oxygen Delivery Method Room Air Objective Labs 09/17/24 18:00 09/17/24 09:58 Labs: Laboratory Results - last 24 hr 09/17/24 09/17/24 09/17/24 08:38 08:38 08:38 WBC RBC Hgb Hct MCV MCH MCHC RDW Plt Count Neut % (Auto) Lymph % (Auto) Bennett % (Auto) Eos % (Auto) Baso % (Auto) Neut # (Auto) Lymph # (Auto) Bennett # (Auto) Eos # (Auto) Baso # (Auto) RBC Morphology Anisocytosis ESR PT INR APTT Sodium Potassium Chloride Carbon Dioxide BUN Creatinine Estimated GFR BUN/Creatinine Ratio Glucose Lactate Calcium Total Bilirubin AST ALT Alkaline Phosphatase C-Reactive Protein NT-Pro-B Natriuret Pep Total Protein Albumin Globulin Albumin/Globulin Ratio Lipase Procalcitonin Urine Color Yellow Urine Appearance Cloudy Urine pH 6.5 Ur Specific [place] 1.010 Urine Protein Negative Urine Glucose (UA) 1+ H Urine Ketones Negative Urine Occult Blood 1+ H Urine Nitrate Negative Urine Bilirubin Negative Urine Urobilinogen 0.2 Ur Leukocyte Esterase 3+ H Urine RBC 0-1/hpf 0-1/hpf Urine WBC 30-100/hpf H 30-100/hpf H Ur Squamous Epith Cells None seen Urine Bacteria Ur Culture Indicated? Vol Urine Centrifuged 09/17/24 09/17/24 09/17/24 08:38 08:38 08:38 WBC RBC Hgb Hct MCV MCH MCHC RDW Plt Count Neut % (Auto) Lymph % (Auto) Bennett % (Auto) Eos % (Auto) Baso % (Auto) Neut # (Auto) Lymph # (Auto) Bennett # (Auto) Eos # (Auto) Baso # (Auto) RBC Morphology Anisocytosis ESR PT INR APTT Sodium Potassium Chloride Carbon Dioxide BUN Creatinine Estimated GFR BUN/Creatinine Ratio Glucose Lactate Calcium Total Bilirubin AST ALT Alkaline Phosphatase C-Reactive Protein NT-Pro-B Natriuret Pep Total Protein Albumin Globulin Albumin/Globulin Ratio Lipase Procalcitonin Urine Color Urine Appearance Urine pH Ur Specific [place] Urine Protein Urine Glucose (UA) Urine Ketones Urine Occult Blood Urine Nitrate Urine Bilirubin Urine Urobilinogen Ur Leukocyte Esterase Urine RBC Urine WBC Ur Squamous Epith Cells None seen Urine Bacteria Many (>30) H Many (>30) H Ur Culture Indicated? Specimen cultured Vol Urine Centrifuged 10ml (spun) 10ml (spun) 09/17/24 09/17/24 09/17/24 08:53 09:58 18:00 WBC 8.6 8.5 9.0 RBC 4.54 4.56 4.66 Hgb 10.2 L 10.1 L 10.3 L Hct 31.7 L 31.7 L 32.4 L MCV 69.8 L 69.6 L 69.4 L MCH 22.4 L 22.2 L 22.0 L MCHC 32.1 31.9 31.7 RDW 27.3 H 27.7 H 27.8 H Plt Count 113 L 116 L 108 L Neut % (Auto) 79.1 H 78.7 H 81.0 H Lymph % (Auto) 11.4 L 11.2 L 10.0 L Bennett % (Auto) 7.9 7.8 7.1 Eos % (Auto) 1.2 L 1.5 L 1.4 L Baso % (Auto) 0.4 0.8 0.5 Neut # (Auto) 6800 6700 7300 H Lymph # (Auto) 1000 L 900 L 900 L Bennett # (Auto) 700 700 600 Eos # (Auto) 100 100 100 Baso # (Auto) 0 100 0 RBC Morphology Not Reportable Anisocytosis 2+ H ESR 18 H PT 17.2 H INR 1.5 H APTT 37 H Sodium 127 L 128 L Potassium 4.3 4.4 Chloride 97 L 98 Carbon Dioxide 22 20 L BUN 6 L 6 L Creatinine 0.66 0.61 L Estimated GFR > 60 > 60 BUN/Creatinine Ratio 9.1 9.8 Glucose 245 H 211 H Lactate 1.1 1.0 Calcium 8.7 8.7 Total Bilirubin 0.9 1.1 AST 45 47 ALT 27 28 Alkaline Phosphatase 137 H 151 H C-Reactive Protein 0.5 NT-Pro-B Natriuret Pep 60 Total Protein 7.0 7.1 Albumin 3.8 3.8 Globulin 3.2 3.3 Albumin/Globulin Ratio 1.2 1.2 Lipase 85 Procalcitonin 0.078 Urine Color Urine Appearance Urine pH Ur Specific [place] Urine Protein Urine Glucose (UA) Urine Ketones Urine Occult Blood Urine Nitrate Urine Bilirubin Urine Urobilinogen Ur Leukocyte Esterase Urine RBC Urine WBC Ur Squamous Epith Cells Urine Bacteria Ur Culture Indicated? Vol Urine Centrifuged Assessment & Plan Time-Based Coding :: 55 minutes spent with patient and on the chart (including review of chart, obtaining history, exam, reviewing outside data, placing orders, documenting exam and treatment plan, and counseling patient). Quality MIPS - Admit I confirm the patient?s Advance Care Plan is present, Code status is documented, Surrogate decision maker is in patient?s record [If Yes, STOP here]: Yes MIPS - Meds 'Current medications' to include all prescriptions, [id number] products, herbals, cannabis/cannabidiol products, and vitamin/mineral/dietary (nutritional) supplements. I have utilized all available resources to obtain, update, or review the patient?s current medications. [If Yes, STOP here]: Yes
[2024-09-17 18:54] LABS: Anisocytosis 3+; Microcytosis 2+; Platelet Estimate Decreased on smear
[2024-09-17] MEDS: VANCOMYCIN 1,000 MG in SODIUM CHLORIDE 0.9% 250 ML 250 MG IV (19:03)
[2024-09-17] MEDS: cefTRIAXone 1,000 MG in SODIUM CHLORIDE 0.9% 100 ML 200 MG IV (20:19)
[2024-09-18] MEDS: OXYCODONE IR 10 MG TABLET PO ×5 (01:24→23:26)
[2024-09-18 10:16] LABS: Add Manual Diff / Slide Review NO; Basophils Absolute Auto 100 /uL (0-100); Basophils Percent Auto 0.6 % (0-2); Eosinophils Absolute Auto 200 /uL (0-450); Eosinophils Percent Auto 2.3 % (2-4); Hematocrit 32.1 % (41-53); Hemoglobin 10.3 g/dL (13.5-17.5); Lymphocytes Absolute Auto 900 /uL (1100-4500); Lymphocytes Percent Auto 10.6 % (25-40); Mean Corpuscular HGB Conc 32.2 % (30-36); Mean Corpuscular Hemoglobin 22.5 PG (26-34); Mean Corpuscular Volume 70.1 fL (80-100); Monocytes Absolute Auto 600 /uL (0-900); Monocytes Percent Auto 6.8 % (3-14); Neutrophils Absolute Auto 7000 /uL (1500-7000); Neutrophils Percent Auto 79.7 % (50-75); Platelet Count 109 X10^3/uL (150-400); Red Blood Cell Count 4.59 X10^6/uL (4.5-5.9); Red Cell Distribution Width 28.2 % (11.6-14.8); White Blood Cell Count 8.7 X10^3/uL (4.5-11.0)
[2024-09-18 10:26] LABS: Alanine Aminotransferase 32 IU/L (<50); Albumin 3.8 g/dL (3.5-5.0); Albumin Globulin Ratio 1.2 (1.0-2.8); Alkaline Phosphatase 136 U/L (38-126); Aspartate Aminotransferase 46 IU/L (17-59); Bilirubin Total 1.2 mg/dL (0.2-1.3); Blood Urea Nitrogen 9 mg/dL (9-20); Calcium 8.6 mg/dL (8.4-10.2); Carbon Dioxide 21 mmol/L (22-32); Chloride 98 mmol/L (98-107); Estimated Glomerular Filt Rate > 60 mL/min (>60); Globulin 3.1 g/dL (1.7-4.1); Glucose 250 mg/dL (70-99); HEMOLYSIS < 15 (0-50); Potassium 4.4 mmol/L (3.4-5.1); Sodium 130 mmol/L (137-145); Total Protein 6.9 g/dL (6.3-8.2)
[2024-09-18 10:28] LABS: Anisocytosis 2+; Poikilocytosis 1+
[2024-09-18 12:00] VITALS: BP 101/65; PULSE 83; RESP 18; TEMP 36.6; O2SAT 98
[2024-09-18] MEDS: LACTULOSE 20 GM/30 ML SOLUTION PO ×2 (12:54→20:11)
--- NOTE | 2024-09-18 14:25 | CM.DANOTE ---
Initiial DCP Assessment Visit Note Reviewed EMR and team rounds for pt's medical status and updates. Pt lives independently in her apartment in Tuesday. She has family who can assist her with transport home once she's medically cleared for home d/c. Payor: Jose PCP: JUAN CARLOS Stanley Pt is a 54 year-old F with a hx of cirrhosis and ascites, was sent by Radiology when she went in for her paracentesis visit and was observed to be acutely ill. In the ED, symptoms included severe abdominal pain/distension, and edema in her groin/legs. CT abd/pelvis showed ascites, concerning for peritonitis. Plan was made to admit for pain control, IV ABO's. DCP will continue to monitor for any final d/c assistance or resource needs. 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 No History Provided By Medical Record Has Patient been No admitted in last 30 days? Prior Living Apartment/Condo Arrangements Household Members children,none Type of Drives own vehicle transporation used prior to admit Independent with ADL Yes 's Is patient alert and Yes oriented? Caregiver for No Another Comment No identified home d/c needs at this time. Barriers to No Discharge Discharge Plan Home Transportation Family Arrangement Referrals Initiated None needed Whiteboard Updated No in Patient Room with name and ext. # of Publicity Person Review Status In Process Please Provide Date 09/18/24 Initial DC Assessment Was Performed
[2024-09-18 18:00] VITALS: BP 126/74; PULSE 75; RESP 13; TEMP 36.7; O2SAT 99
[2024-09-18] MEDS: cefTRIAXone 1,000 MG in SODIUM CHLORIDE 0.9% 100 ML 200 MG IV (18:16)
[2024-09-18] MEDS: SODIUM CHLORIDE 0.9% FLUSH 10 ML IV (20:11)
[2024-09-18 20:35] VITALS: BP 124/78; PULSE 81; RESP 18; TEMP 36.8; O2SAT 99
[2024-09-18] MEDS: MAG HYDROX/ALUM/SIMETH 30 ML UDC PO (23:26)
[2024-09-19 00:05] VITALS: BP 126/73; PULSE 78; RESP 18; TEMP 36.8; O2SAT 98
[2024-09-19 04:25] VITALS: BP 122/70; PULSE 77; RESP 18; TEMP 37; O2SAT 98
[2024-09-19 08:00] VITALS: BP 135/78; PULSE 72; RESP 16; TEMP 36.4; O2SAT 96
[2024-09-19] MEDS: LACTULOSE 20 GM/30 ML SOLUTION PO ×2 (08:37→20:49)
[2024-09-19] MEDS: OXYCODONE IR 10 MG TABLET PO ×3 (08:37→20:49)
[2024-09-19] MEDS: PANTOPRAZOLE DR 40 MG TABLET PO (08:37)
[2024-09-19] MEDS: SODIUM CHLORIDE 0.9% FLUSH 10 ML IV ×2 (08:38→22:37)
--- NOTE | 2024-09-19 09:15 | P.PN_ITS ---
Subjective Subjective Date Patient Seen: 09/18/24 Interval history: Chief complaint: Abdominal pain likely spontaneous bacterial peritonitis History of present illness: 54-year-old male with Laennec's cirrhosis who gets scheduled out patient paracentesis was sent in because of increasing pain and symptoms for concern of peritonitis by the radiologist. Was evaluated in emergency room found to have very significant pain we had imaging done but there were no pockets of fluid large enough to drain and it was thickening of the mesentery suggesting peritonitis patient was referred for admission Findings in the emergency room significant for white count of 9000 with 81% neutrophils sodium 128 potassium 4.4 urinalysis showed 30-100 white blood cells per high-power field and bacteria /: Slight improvement in abdominal pain patient also reporting testicular pain Review of systems: No fever or chills weight loss No chest pain palpitations shortness for breath No paresthesias paresis No urinary symptoms Physical exam: Uncomfortable appearing HEENT unremarkable Neck no carotid bruits Heart and lungs clear Abdomen is distended tender to palpation and percussion Left testicle is tender at the epididymis Neuro nonfocal Extremities 2+ bipedal edema Assessment and plan: Signs and symptoms suggestive of acute peritonitis and possible urinary tract infection with probable reflux epididymitis for which we will treat with ceftriaxone for both * Ceftriaxone 1 g daily * Blood cultures pending * Analgesia * Urine cultures pending [facility] only for DVT prophylaxis Full code Exam Vital Signs (past 8 hours): - 09/19/24 04:25 09/19/24 08:00 Temperature 98.6 F 97.5 F L Pulse Rate 77 72 Respiratory Rate 18 16 Blood Pressure 122/70 135/78 Pulse Oximetry 98 96 Oxygen Flow Rate 0 0 Oxygen Delivery Method Room Air Oxygen Flow Rate 0 Objective Labs 09/18/24 10:06 09/18/24 10:06 Labs: Laboratory Results - last 24 hr 09/18/24 10:06 WBC 8.7 RBC 4.59 Hgb 10.3 L Hct 32.1 L MCV 70.1 L MCH 22.5 L MCHC 32.2 RDW 28.2 H Plt Count 109 L Neut % (Auto) 79.7 H Lymph % (Auto) 10.6 L [place] % (Auto) 6.8 Eos % (Auto) 2.3 Baso % (Auto) 0.6 Neut # (Auto) 7000 Lymph # (Auto) 900 L [place] # (Auto) 600 Eos # (Auto) 200 Baso # (Auto) 100 RBC Morphology Not Reportable Poikilocytosis 1+ H Anisocytosis 2+ H Sodium 130 L Potassium 4.4 Chloride 98 Carbon Dioxide 21 L BUN 9 Creatinine 0.75 Estimated GFR > 60 BUN/Creatinine Ratio 12.0 Glucose 250 H Calcium 8.6 Total Bilirubin 1.2 AST 46 ALT 32 Alkaline Phosphatase 136 H Total Protein 6.9 Albumin 3.8 Globulin 3.1 Albumin/Globulin Ratio 1.2 PFSH Social History household members: children and none Smoking Status: Current every day smoker alcohol intake: never Assessment & Plan Time-Based Coding :: 35 minutes spent with patient and on the chart (including review of chart, obtaining history, exam, reviewing outside data, placing orders, documenting exam and treatment plan, and counseling patient). Quality VTE Deep Vein Thrombosis/Pulmonary Embolism Present on Admission: No
--- NOTE | 2024-09-19 15:06 | CM.DPC ---
DOMENICAP Cont. Reviewed EMR and team rounds for pt's status and updates. Per his request, met with pt and provided resource information for rental, food, and utility assistance in Tuesday. Plan is likely home tomorrow or Sat w/family transporting.
[2024-09-19 16:00] VITALS: BP 140/78; PULSE 69; RESP 16; TEMP 36.2; O2SAT 98
[2024-09-19] MEDS: cefTRIAXone 2,000 MG in SODIUM CHLORIDE 0.9% 100 ML 200 MG IV (18:08)
[2024-09-19 20:08] VITALS: BP 108/76; PULSE 66; RESP 16; TEMP 36.7; O2SAT 100
[2024-09-19] MEDS: MAG HYDROX/ALUM/SIMETH 30 ML UDC PO (20:49)
[2024-09-20] VITALS: BP 143/85; PULSE 79; RESP 17; TEMP 36.9; O2SAT 98
[2024-09-20] MEDS: OXYCODONE IR 10 MG TABLET PO ×4 (01:37→20:13)
[2024-09-20 04:19] VITALS: BP 141/78; PULSE 67; RESP 16; TEMP 36.7; O2SAT 99
[2024-09-20] MEDS: PANTOPRAZOLE DR 40 MG TABLET PO (05:37)
--- NOTE | 2024-09-20 07:24 | P.PN_ITS ---
Subjective Subjective Interval history: Chief complaint: Abdominal pain likely spontaneous bacterial peritonitis History of present illness: 54-year-old male with Laennec's cirrhosis who gets scheduled out patient paracentesis was sent in because of increasing pain and symptoms for concern of peritonitis by the radiologist. Was evaluated in emergency room found to have very significant pain we had imaging done but there were no pockets of fluid large enough to drain and it was thickening of the mesentery suggesting peritonitis patient was referred for admission Findings in the emergency room significant for white count of 9000 with 81% neutrophils sodium 128 potassium 4.4 urinalysis showed 30-100 white blood cells per high-power field and bacteria 6/3: Slight improvement in abdominal pain patient also reporting testicular pain S: He was feeling improved today, but still has left testicle tenderness and the testicle remains firm. He notes the pain is improved by about 50%. Has left abdomen is somewhat full, no nausea. Exam Vital Signs (past 8 hours): - 09/20/24 00:00 09/20/24 04:19 Temperature 98.4 F 98.1 F Pulse Rate 79 67 Respiratory Rate 17 16 Blood Pressure 143/85 H 141/78 H Pulse Oximetry 98 99 Oxygen Flow Rate 0 0 Oxygen Delivery Method Room Air Oxygen Flow Rate 0 Narrative Exam Narrative: NAD, alert and oriented. Fluent speech. Lungs are clear, normal rate and effort. Heart is regular, no murmur gallop or rub. Abdomen is soft, non distended. Extremities are free of edema. Left testicle is normal size, but slightly firm compared to the right. Minimally tender. No obvious hernia. Objective Imaging CT scan - abdomen: Radiologist's impression: 1. Small amount of ascites fluid and peritoneal thickening concerning for peritonitis. Small mesenteric lymph nodes are also seen. No peritoneal retroperitoneal lymphadenopathy by size criteria. No peritoneal free air. 2. No bowel obstruction. No abnormal bowel wall thickening. No abscess collection. 3. Cirrhotic appearing liver. No discrete hepatic lesion. Mild splenomegaly, no discrete splenic lesion. US - abdomen: Radiologist's impression: Small volume of ascites without sufficient pocket for safe paracentesis as assessed on real-time evaluation. Labs 09/18/24 10:06 09/18/24 10:06 [facility] Social History household members: children and none Smoking Status: Current every day smoker alcohol intake: never Assessment & Plan Assessment & Plan narrative: Signs and symptoms suggestive of acute urinary tract infection with probable reflux epididymitis for which we will treat with ceftriaxone for both, improving. * Ceftriaxone 1 g daily * Blood cultures pending * Analgesia * Urine cultures pending * He requires another night of IV antibiotics and continued monitoring of his clinical improvement. Cirrhosis, stable. Time-Based Coding :: [TOTAL MINUTES] spent with patient and on the chart (including review of chart, obtaining history, exam, reviewing outside data, placing orders, documenting exam and treatment plan, and counseling patient) on [DATE]. Quality VTE Deep Vein Thrombosis/Pulmonary Embolism Present on Admission: No
[2024-09-20 08:00] VITALS: BP 112/91; PULSE 69; RESP 17; TEMP 36.4; O2SAT 99
[2024-09-20] MEDS: LACTULOSE 20 GM/30 ML SOLUTION PO ×2 (09:16→20:13)
[2024-09-20] MEDS: MAG HYDROX/ALUM/SIMETH 30 ML UDC PO (09:22)
[2024-09-20] MEDS: SODIUM CHLORIDE 0.9% FLUSH 10 ML IV ×2 (10:00→20:13)
--- NOTE | 2024-09-20 12:00 | CM.DPC ---
DCP Cont: Per MD, pt making progress but not yet stable for discharge today and likely another 1-2 days. Per RN, pt independent in room and no concerns noted at this time. Plan: SW to follow for plan of discharge home back to [facility] via family POV when medically stable. GAURAV Nicole
[2024-09-20 15:00] VITALS: BP 151/83; PULSE 67; RESP 17; TEMP 36.4; O2SAT 98
[2024-09-20] MEDS: cefTRIAXone 2,000 MG in SODIUM CHLORIDE 0.9% 100 ML 200 MG IV (17:53)
[2024-09-20 21:00] VITALS: BP 136/74; PULSE 72; RESP 19; TEMP 36.5; O2SAT 100
[2024-09-21] MEDS: OXYCODONE IR 10 MG TABLET PO ×2 (01:13→09:44)
[2024-09-21 06:00] VITALS: BP 135/79; PULSE 61; RESP 16; TEMP 36.6; O2SAT 99
[2024-09-21] MEDS: PANTOPRAZOLE DR 40 MG TABLET PO (07:03)
[2024-09-21] MEDS: diphenhydrAMINE 25 MG TABLET PO (07:05)
--- NOTE | 2024-09-21 08:31 | DI.US.S_ITS ---
PROCEDURE: US ABDOMEN LIMITED INDICATIONS: reassess ascites volume and peritoneal thickening TECHNIQUE: Real-time focused scanning was performed of the abdomen, with image documentation. COMPARISON: [facility], CT, CT ABDOMEN PELVIS W CON, 09/17/2024, 9:20. [facility], US, US ABDOMEN LIMITED, 09/17/2024, 16:29. FINDINGS: Small amount of ascites fluid is seen in lower abdomen. IMPRESSION: Small amount of ascites fluid inadequate for safe ultrasound-guided paracentesis. No obvious peritoneal thickening is seen on this ultrasound study. Dictated by: Casey Cox M.D. on 09/21/2024 at 10:57 Approved by: Casey Cox M.D. on 09/21/2024 at 10:58
[2024-09-21] MEDS: LACTULOSE 20 GM/30 ML SOLUTION PO (09:44)
[2024-09-21] MEDS: MAG HYDROX/ALUM/SIMETH 30 ML UDC PO (09:44)
[2024-09-21] MEDS: SODIUM CHLORIDE 0.9% FLUSH 10 ML IV (09:45)
--- NOTE | 2024-09-21 10:43 | CM.DPNOTE ---
DCP Continued: Reviewed EMR and team rounds for pt?s medical status. Per hospitalist, discharge pending on ultrasound. Per RN, pt independent in room and no concerns noted at this time. No new discharge needs identified at this time. Plan: Anticipating dc home with family to [place] when medically cleared, either 09/21 or 09/22. CM Team will continue to follow for coordination of discharge plans. TOMY Fraser
--- NOTE | 2024-09-21 11:14 | PM.DS.1 ---
History of Present Illness History of Present Illness Chief complaint: pain, nausea, AMBROSE, swelling abd- came from imaging Narrative: Chief complaint: Abdominal pain likely spontaneous bacterial peritonitis History of present illness: 54-year-old male with Laennec's cirrhosis who gets scheduled out patient paracentesis was sent in because of increasing pain and symptoms for concern of peritonitis by the radiologist. Was evaluated in emergency room found to have very significant pain we had imaging done but there were no pockets of fluid large enough to drain and it was thickening of the mesentery suggesting peritonitis patient was referred for admission Findings in the emergency room significant for white count of 9000 with 81% neutrophils sodium 128 potassium 4.4 urinalysis showed 30-100 white blood cells per high-power field and bacteria Discharge Providers Provider Date of admission: 09/17/24 18:34 Discharge Date: 09/21/24 Primary care physician: Johnny Kwan MD Discharge provider: Nicolás Chicas MD Summary Hospital Course Discharge Diagnosis: Acute urinary tract infection with probable reflux epididymitis for which we will treat with ceftriaxone for both, improving. Ceftriaxone 1 g daily Blood cultures hegative. Cirrhosis, stable. Hospital Course: He was treated with IV antibiotics for urinary tract infection as well as possible epididymitis. He would left testicle pain and some firmness. He did have E coli in his urine culture in his blood cultures remained negative. He did have improvement of all symptoms on IV antibiotics. On the day of discharge he had minimal to no tenderness of the left testicle. The patient had a repeat ultrasound showing very low volume ascites not suitable for a tap. He was felt to be stable for discharge we will continue antibiotics for another week for urinary tract infection, and possible epididymitis. There was no clinical support for a diagnosis of bacterial peritonitis. Status at Discharge Cognitive/behavioral status at discharge: oriented Functional status at discharge: independent ambulation Overall status at discharge: patient is back to baseline Time Spent with Patient Time spent: Greater than 30 minutes Exam Vital Signs (past 8 hours): - 09/21/24 06:00 Temperature 97.9 F Pulse Rate 61 Respiratory Rate 16 Blood Pressure 135/79 Pulse Oximetry 99 Oxygen Flow Rate 0 Oxygen Delivery Method Room Air Oxygen Flow Rate 0 Narrative Exam Narrative: NAD, alert and oriented. Fluent speech. Lungs are clear, normal rate and effort. Heart is regular, no murmur gallop or rub. Abdomen is soft, distended and non-tender. Extremities are free of edema. Objective Imaging Multiple studies:: Radiologist's impression: Abdomen ultrasound on September 21: IMPRESSION: Small amount of ascites fluid inadequate for safe ultrasound-guided paracentesis. No obvious peritoneal thickening is seen on this ultrasound study. Abdomen Ultrasound on September 17: Small volume of ascites without sufficient pocket for safe paracentesis as assessed on real-time evaluation. Abdomen and pelvis CT on September 17: 1. Small amount of ascites fluid and peritoneal thickening concerning for peritonitis. Small mesenteric lymph nodes are also seen. No peritoneal retroperitoneal lymphadenopathy by size criteria. No peritoneal free air. 2. No bowel obstruction. No abnormal bowel wall thickening. No abscess collection. 3. Cirrhotic appearing liver. No discrete hepatic lesion. Mild splenomegaly, no discrete splenic lesion. Labs 09/18/24 10:06 09/18/24 10:06 [facility] Social History household members: children and none Smoking Status: Current every day smoker alcohol intake: never Discharge Assessment & Plan Assessment and Plan Assessment: Acute urinary tract infection with probable reflux epididymitis Plan of Treatment: Discharge home with Cipro 500 b.i.d. for an additional 7 days, asked to see PCP Dr. Kwan next week. Discharge Plan Discharge Plan Patient Disposition: Home Provider Discharge Comment: Stable for discharge home on oral antibiotics and close follow up with primary care next Tuesday. Discharge orders & Medications Prescriptions: New ciprofloxacin HCl [Cipro] 500 mg tablet 500 mg PO BID Qty: 14 0RF Continued ferrous sulfate 325 mg (65 mg iron) tablet 325 mg PO QAM dicyclomine 10 mg capsule 10 mg PO 4XD PRN (Reason: abdominal pain) spironolactone 25 mg tablet 25 mg PO DAILY naproxen sodium [Aleve] 220 mg capsule 220 mg PO BID PRN (Reason: pain) Discontinued phenazopyridine 100 mg tablet 100 mg PO 3XD cephalexin 500 mg capsule 500 mg PO 4XD Follow up/Referrals: Johnny Kwan MD [Primary Care Provider, Family Practice] Discharge Health Status Multidrug resistant organism: No MDRO Diet/Activity/Treatments Diet: Regular Skin/Wound/Dressing Care Report to your healthcare provider any signs of infection, such as:: chills, fever, night sweats, increased pain, unusual drainage and unusual redness Visit Report/Discharge Packet Instructions: DI for Urinary Tract Infection (UTI) Stand Alone Forms: Patient Portal/API Discharge Data Primary Care Provider: Johnny Kwan VTE Deep Vein Thrombosis/Pulmonary Embolism Present on Admission: No
[2024-09-21 12:00] VITALS: BP 135/79; PULSE 74; RESP 13; TEMP 36.3; O2SAT 98
--- NOTE | 2024-09-21 12:47 | PC.NURSE ---
Patient is A&OX4, VSS, afebrile on RA. He is independent in his room and tolerating meals well. Per previously discussed with pt, U/s of abdomen completed this a.m. Results reviewed with patient at the bedside with hospitalist and pt is medically cleared for discharge home today. He verbalizes understanding of new antibiotic send to [facility]acy. He is escorted via w/ch to hospital entrance to meet [place]. He is discharged with home meds he had sent to pharmacy and all of his personal belongings at approximately 12 10 pm this afternoon.
== END 2024-09-21 12:15 | disposition home or self-care (01) | DRG 463 ==
LOC: ED 18:35 → AC 18:35
PROVIDERS: Admitting Provider Internal Medicine; Emergency Provider Student in an Organized Health Care Education/Training Program; Family Provider Nurse Practitioner Family; PCP Family Medicine; Referring Provider Student in an Organized Health Care Education/Training Program; Visit Provider Internal Medicine
DX: N39.0 Urinary tract infection, site not specified (principal); N45.1 Epididymitis; F17.200 Nicotine dependence, unspecified, uncomplicated; B96.20 Unspecified Escherichia coli [E. coli] as the cause of diseases classified elsewhere; K70.31 Alcoholic cirrhosis of liver with ascites
CPT/HCPCS: 36415; 74177; 76705; 80053; 81001; 81003; 81015; 83605; 83690; 83880; 84145; 85025; 85610; 85651; 85730; 86140; 87040; 87077; 87086; 87186; 93005; 96365; 96367; 96375; 96376; 99284; J0696; J1200; J2270; J2405; J2543; Q9967

== ENCOUNTER 2024-10-08 07:20 | Outpatient (CLI) | payer OTHER, MEDICAID, SELFPAY ==
[2024-09-17 21:12] VITALS: BMI 27.8
--- NOTE | 2024-10-08 | PATH_ITS ---
Note [facility] Accession Number: [id number] TESTS RESULT FLAG UNITS REF RANGE LAB Clinician Provided Cytology Information No. of containers..01 Other (Miscellaneous) Source: ABDOMINAL FLUID DIAGNOSIS: ABDOMINAL FLUID NEGATIVE FOR MALIGNANT CELLS. REACTIVE MESOTHELIAL CELLS PRESENT. THIS INTERPRETATION INCLUDES EVALUATION OF A CELL BLOCK. Pathologist ICD10: K70.31 Signed out by: Liz Farris MD, Pathologist NPI- [id number] Performed by: Armando Mendiola, Accounting Machine Mechanic ([facility]) Gross description: 50 CC, ORANGE, CLOUDY RECEIVED: FRESH IN BLUE CAP CONTAINER.VO /VDU 10/09/2024 0950 Local FLAG LEGEND: L-Low Normal,H-High Normal,LL-Alert Low,HH-Alert High <-Panic Low,>-Panic High,A-Abnormal,AA-Critical Abnormal Performed at: 01 =Z [facility] [address] [facility], [place] [address] Ventura Holcomb MD, Performed at: 01 [facility] [address] [address], [place], [place] [id number] MD Ventura Holcomb MD Phone: [phone]
--- NOTE | 2024-10-08 07:21 | DI.US.S_ITS ---
PROCEDURE: US PARACENTESIS W/ALBUMIN INDICATIONS: Cirrhosis TECHNIQUE: The indications, alternatives, benefits, risks, and complications of the procedure were explained to the patient. Written informed consent was obtained and placed in the chart. The abdomen and pelvis were examined sonographically, and an appropriate site was chosen for paracentesis. The skin was prepared and draped in the usual sterile fashion, and 1% lidocaine was infiltrated from the skin down through the peritoneal surface. A 19-gauge catheter-covered needle was then introduced into the peritoneal space, the catheter was advanced and the needle was withdrawn, and thereafter peritoneal fluid was withdrawn. The catheter was then removed and a dressing was applied. The fluid was discarded if the clinician did not order diagnostic testing of the fluid. COMPARISON: [facility], , PARACENTESIS W/ALBUMIN, 08/31/2024, 12:38. FINDINGS: Access site: Left lower quadrant Needle: One-Step centesis catheter with introducer needle. Fluid volume and description: 3.5 L, heather and slightly cloudy Fluid sent for diagnostic testing: Yes Medications: 1% lidocaine for local anaesthesia. Complications: None. IMPRESSION: Successful ultrasound-guided paracentesis. Dictated by: Shekhar Reddy M.D. on 10/08/2024 at 11:38 Approved by: Shekhar Reddy M.D. on 10/08/2024 at 11:39
[2024-10-08 07:45] VITALS: BP 134/73; PULSE 83; RESP 20; TEMP 36.4; O2SAT 99
[2024-10-08 09:05] VITALS: BP 125/69; PULSE 74; RESP 20; O2SAT 98
[2024-10-08 09:15] VITALS: BP 121/72; PULSE 72; RESP 18; O2SAT 99
== END 2024-10-08 09:24 | disposition home or self-care (01) ==
LOC: US 07:21
PROVIDERS: Family Provider Nurse Practitioner Family; PCP Family Medicine; Visit Provider Radiology Diagnostic Radiology
DX: K70.31 Alcoholic cirrhosis of liver with ascites (principal)
CPT/HCPCS: 49083

== ENCOUNTER 2024-10-24 11:00 | Outpatient (CLI) | payer OTHER, SELFPAY ==
[2024-09-17 21:12] VITALS: BMI 27.8
[2024-10-24] VITALS (12 sets, daily range): BP systolic 128–151; BP diastolic 65–84; PULSE 58–69; RESP 14–18; TEMP 36.2; O2SAT 96–99
--- NOTE | 2024-10-24 | PATH_ITS ---
Note [facility] Accession Number: [id number] TESTS RESULT FLAG UNITS REF RANGE LAB Clinician Provided Cytology Information No. of containers..01 Other (Miscellaneous) Source: ABDOMINAL FLUID DIAGNOSIS: ABDOMINAL FLUID NEGATIVE FOR MALIGNANT CELLS. THIS INTERPRETATION INCLUDES EVALUATION OF A CELL BLOCK. Pathologist ICD10: R18.8 Signed out by: Malina Wills MD, Pathologist NPI- [id number] Performed by: Clayton Diaz, House Rn ([facility]) Gross description: 55 CC, YELLOW, CLEAR RECEIVED: FRESH IN BLUE CAP CONTAINER .VO /VDU 10/25/2024 1051 Local FLAG LEGEND: L-Low Normal,H-High Normal,LL-Alert Low,HH-Alert High <-Panic Low,>-Panic High,A-Abnormal,AA-Critical Abnormal Performed at: 01 =Z [facility] [address] [place] [address] [address], [place] [address] Ventura Holcomb MD, Performed at: 01 [facility] [address] [place] [address] [address], [place], [place] [id number] MD Ventura Holcomb MD Phone: [phone]
--- NOTE | 2024-10-24 11:04 | DI.US.S_ITS ---
PROCEDURE: US PARACENTESIS W/ALBUMIN INDICATIONS: ASCITIES TECHNIQUE: The indications, alternatives, benefits, risks, and complications of the procedure were explained to the patient. Written informed consent was obtained and placed in the chart. The abdomen and pelvis were examined sonographically, and an appropriate site was chosen for paracentesis. The skin was prepared and draped in the usual sterile fashion, and 1% lidocaine was infiltrated from the skin down through the peritoneal surface. A 19-gauge catheter-covered needle was then introduced into the peritoneal space, the catheter was advanced and the needle was withdrawn, and thereafter peritoneal fluid was withdrawn. The catheter was then removed and a dressing was applied. The fluid was discarded if the clinician did not order diagnostic testing of the fluid. COMPARISON: [facility], PARACENTESIS W/ALBUMIN, 10/08/2024, 8:25. FINDINGS: Access site: Right lower quadrant Needle: One-Step centesis catheter with introducer needle. Fluid volume and description: 5.2 L, clear/yellow and mildly callus Fluid sent for diagnostic testing: Yes Medications: 1% lidocaine for local anaesthesia. Complications: None. IMPRESSION: Successful ultrasound-guided paracentesis. Dictated by: Shekhar Reddy M.D. on 10/24/2024 at 15:18 Approved by: Shekhar Reddy M.D. on 10/24/2024 at 15:20
[2024-10-24 12:17] LABS: INR 1.4 (0.9-1.3); Prothrombin Time 15.6 SECONDS (9.4-12.5)
[2024-10-24 12:21] LABS: Hematocrit 37.3 % (41-53); Hemoglobin 12.5 g/dL (13.5-17.5); Mean Corpuscular HGB Conc 33.5 % (30-36); Mean Corpuscular Hemoglobin 25.9 PG (26-34); Mean Corpuscular Volume 77.5 fL (80-100); Platelet Count 115 X10^3/uL (150-400)
[2024-10-24] MEDS: ALBUMIN HUMAN 50 GM/200 ML VIAL IV (13:21)
== END 2024-10-24 15:05 | disposition home or self-care (01) ==
PROVIDERS: Radiology Diagnostic Radiology; Family Provider Nurse Practitioner Family; PCP Family Medicine
DX: K70.31 Alcoholic cirrhosis of liver with ascites (principal); I83.009 Varicose veins of unspecified lower extremity with ulcer of unspecified site; K65.0 Generalized (acute) peritonitis; L97.909 Non-pressure chronic ulcer of unspecified part of unspecified lower leg with unspecified severity
CPT/HCPCS: 49083; 85027; 85610; 96365; 96366; P9041

== ENCOUNTER 2024-11-07 13:09 | Outpatient (CLI) | payer OTHER, SELFPAY ==
[2024-09-17 21:12] VITALS: BMI 27.8
--- NOTE | 2024-11-07 | PATH_ITS ---
Note [facility] Accession Number: [id number] TESTS RESULT FLAG UNITS REF RANGE LAB Clinician Provided Cytology Information No. of containers..01 Body Fluid in a Sterile Container Source: ASCITES DIAGNOSIS: ASCITES INCONCLUSIVE. THIS INTERPRETATION INCLUDES EVALUATION OF A CELL BLOCK. ANCILLARY STUDIES PENDING; RESULTS WILL BE REPORTED AN ADDENDUM. Pathologist ICD10: R18.8 Signed out by: Malina Wills MD, Pathologist NPI- [id number] Performed by: Clayton Diaz, Die Filer ([facility]) Gross description: 70 CC, PINK, CLOUDY RECEIVED: FRESH IN BLUE CAP CONTAINER.VO /VDU 11/08/2024 0551 Local FLAG LEGEND: L-Low Normal,H-High Normal,LL-Alert Low,HH-Alert High <-Panic Low,>-Panic High,A-Abnormal,AA-Critical Abnormal Performed at: 01 =Z [facility] [address] [facility], [place] [address] Ventura Holcomb MD, Performed at: 01 [facility] [address] [facility], [place], [place] [id number] MD Ventura Holcomb MD Phone: [phone]
--- NOTE | 2024-11-07 13:12 | DI.US.S_ITS ---
PROCEDURE: US PARACENTESIS W/ALBUMIN INDICATIONS: ascites TECHNIQUE: The indications, alternatives, benefits, risks, and complications of the procedure were explained to the patient. Written informed consent was obtained and placed in the chart. The abdomen and pelvis were examined sonographically, and an appropriate site was chosen for paracentesis. The skin was prepared and draped in the usual sterile fashion, and 1% lidocaine was infiltrated from the skin down through the peritoneal surface. A 19-gauge catheter-covered needle was then introduced into the peritoneal space, the catheter was advanced and the needle was withdrawn, and thereafter peritoneal fluid was withdrawn. The catheter was then removed and a dressing was applied. The fluid was discarded if the clinician did not order diagnostic testing of the fluid. COMPARISON: [facility], PARACENTESIS W/ALBUMIN, 10/24/2024, 12:19. FINDINGS: Access site: Right lower quadrant Needle: One-Step centesis catheter with introducer needle. Fluid volume and description: 4000 cc. Clear red tinged. Fluid sent for diagnostic testing: Sample collected. Medications: 1% lidocaine for local anaesthesia. Complications: None. IMPRESSION: Successful ultrasound-guided paracentesis. 4 L removed. Dictated by: Daljit Miner M.D. on 11/07/2024 at 17:55 Approved by: Dlajit Miner M.D. on 11/07/2024 at 17:56
[2024-11-07 13:26] VITALS: BP 150/86; PULSE 76; RESP 14; O2SAT 99
[2024-11-07 13:45] VITALS: BP 145/79; PULSE 77; RESP 14; O2SAT 98
[2024-11-07 14:20] VITALS: BP 140/78; PULSE 79; RESP 14; O2SAT 99
== END 2024-11-07 14:41 | disposition home or self-care (01) ==
LOC: US 13:11
PROVIDERS: Family Provider Nurse Practitioner Family; PCP Family Medicine; Referring Provider Internal Medicine Gastroenterology; Visit Provider Internal Medicine Gastroenterology
DX: K70.31 Alcoholic cirrhosis of liver with ascites (principal)
CPT/HCPCS: 49083

== ENCOUNTER 2024-11-12 07:33 | Outpatient (CLI) | payer OTHER, SELFPAY ==
[2024-09-17 21:12] VITALS: BMI 27.8
--- NOTE | 2024-11-12 07:37 | DI.US.S_ITS ---
PROCEDURE: US ABDOMEN LIMITED INDICATIONS: ASCITES TECHNIQUE: Real-time scanning was performed of the abdominal and retroperitoneal organs, with image documentation. COMPARISON: [facility], , US ABDOMEN LIMITED, 09/21/2024, 9:35. FINDINGS / IMPRESSION: A small amount of ascites fluid is noted in each of the 4 quadrants however the amount is too small to safely perform paracentesis. There is some evidence of constipation which correlates to the patient reporting no bowel movement within the last 3-4 days. Dictated by: Lenny Driscoll M.D. on 11/12/2024 at 9:03 Approved by: Lenny Driscoll M.D. on 11/12/2024 at 9:05
[2024-11-12 08:00] VITALS: BP 131/70; PULSE 78; RESP 16; TEMP 36.8; O2SAT 98
[2024-11-12 08:10] LABS: Hematocrit 38.4 % (41-53); Hemoglobin 12.8 g/dL (13.5-17.5); Mean Corpuscular HGB Conc 33.4 % (30-36); Mean Corpuscular Hemoglobin 26.2 PG (26-34); Mean Corpuscular Volume 78.3 fL (80-100); Platelet Count 129 X10^3/uL (150-400)
[2024-11-12 08:15] LABS: INR 1.3 (0.9-1.3); Prothrombin Time 14.7 SECONDS (9.4-12.5)
[2024-11-12 08:18] LABS: PTT Partial Thromboplastin Tim 31 SECONDS (25.1-36.5)
--- NOTE | 2024-11-12 08:55 | PC.NURSE ---
Unable to perform paracentesis due to pocket space being insufficient for fluid draining per Dr Driscoll. Patient aware of inability to perform procedure. Provided snack prior to leaving. Leaving ambulatory without difficulty.
== END 2024-11-12 08:57 | disposition home or self-care (01) ==
LOC: US 07:33
PROVIDERS: Family Provider Nurse Practitioner Family; PCP Family Medicine; Referring Provider Internal Medicine Gastroenterology; Visit Provider Internal Medicine Gastroenterology
DX: K70.31 Alcoholic cirrhosis of liver with ascites (principal)
CPT/HCPCS: 76705; 85027; 85610; 85730; P9041

== ENCOUNTER 2024-11-19 07:27 | Outpatient (CLI) | payer OTHER, SELFPAY ==
[2024-09-17 21:12] VITALS: BMI 27.8
--- NOTE | 2024-11-19 07:29 | DI.US.S_ITS ---
PROCEDURE: US PARACENTESIS INDICATIONS: ASCITES TECHNIQUE: The indications, alternatives, benefits, risks, and complications of the procedure were explained to the patient. Written informed consent was obtained and placed in the chart. The abdomen and pelvis were examined sonographically, and an appropriate site was chosen for paracentesis. The skin was prepared and draped in the usual sterile fashion, and 1% lidocaine was infiltrated from the skin down through the peritoneal surface. A 19-gauge catheter-covered needle was then introduced into the peritoneal space, the catheter was advanced and the needle was withdrawn, and thereafter peritoneal fluid was withdrawn. The catheter was then removed and a dressing was applied. The fluid was discarded if the clinician did not order diagnostic testing of the fluid. COMPARISON: None. FINDINGS: Access site: Left lower quadrant. Needle: One-Step centesis catheter with introducer needle. Fluid volume and description: 4.6 cc of clear fluid. Fluid sent for diagnostic testing: None. Medications: 1% lidocaine for local anaesthesia. Complications: None. IMPRESSION: Successful ultrasound-guided paracentesis. Dictated by: Casey Cox M.D. on 11/19/2024 at 15:06 Approved by: Casey Cox M.D. on 11/19/2024 at 15:07
[2024-11-19 07:45] VITALS: BP 151/80; PULSE 66; RESP 16; TEMP 36.6; O2SAT 96
[2024-11-19 09:25] VITALS: BP 122/67; PULSE 66; RESP 18; TEMP 36.1; O2SAT 98
== END 2024-11-19 09:45 | disposition home or self-care (01) ==
LOC: US 07:28
PROVIDERS: Family Provider Nurse Practitioner Family; PCP Family Medicine; Referring Provider Family Medicine; Visit Provider Radiology Diagnostic Radiology
DX: K70.31 Alcoholic cirrhosis of liver with ascites (principal)
CPT/HCPCS: 49083; P9041

== ENCOUNTER 2024-11-26 12:35 | Outpatient (CLI) | payer OTHER, SELFPAY ==
[2024-09-17 21:12] VITALS: BMI 27.8
--- NOTE | 2024-11-26 12:38 | DI.US.S_ITS ---
PROCEDURE: US PARACENTESIS W/ALBUMIN INDICATIONS: Ascites TECHNIQUE: The indications, alternatives, benefits, risks, and complications of the procedure were explained to the patient. Written informed consent was obtained and placed in the chart. The abdomen and pelvis were examined sonographically, and an appropriate site was chosen for paracentesis. The skin was prepared and draped in the usual sterile fashion, and 1% lidocaine was infiltrated from the skin down through the peritoneal surface. A 19-gauge catheter-covered needle was then introduced into the peritoneal space, the catheter was advanced and the needle was withdrawn, and thereafter peritoneal fluid was withdrawn. The catheter was then removed and a dressing was applied. The fluid was discarded if the clinician did not order diagnostic testing of the fluid. COMPARISON: [facility], PARACENTESIS W/ALBUMIN, 11/07/2024, 13:23. [facility], PARACENTESIS W/ALBUMIN, 10/24/2024, 12:19. FINDINGS: Access site: Right lower quadrant Needle: One-Step centesis catheter with introducer needle. Fluid volume and description: 5 L clear yellow fluid Fluid sent for diagnostic testing: Not request Medications: 1% lidocaine for local anaesthesia. Complications: None. IMPRESSION: Successful ultrasound-guided paracentesis. Dictated by: Josias Falk M.D. on 11/26/2024 at 14:58 Approved by: Josias Falk M.D. on 11/26/2024 at 15:01
[2024-11-26 12:50] VITALS: BP 145/79; PULSE 78; RESP 16; TEMP 36.8; O2SAT 96
[2024-11-26 13:40] VITALS: BP 123/77; PULSE 81; RESP 16; O2SAT 95
[2024-11-26 14:00] VITALS: BP 126/73; PULSE 81; RESP 16; O2SAT 96
== END 2024-11-26 14:14 | disposition home or self-care (01) ==
LOC: US 12:36
PROVIDERS: Family Provider Nurse Practitioner Family; PCP Family Medicine; Referring Provider Internal Medicine Gastroenterology; Visit Provider Internal Medicine Gastroenterology
DX: K70.31 Alcoholic cirrhosis of liver with ascites (principal)
CPT/HCPCS: 49083

== ENCOUNTER 2024-12-21 16:14 | Outpatient (CLI) | payer OTHER, SELFPAY ==
[2024-09-17 21:12] VITALS: BMI 27.8
--- NOTE | 2024-12-21 | PATH_ITS ---
Note [facility] Accession Number: [id number] TESTS RESULT FLAG UNITS REF RANGE LAB Clinician Provided Cytology Information No. of containers..01 Other (Miscellaneous) Source: ASCITES DIAGNOSIS: 01 ASCITES NEGATIVE FOR MALIGNANT CELLS. THIS INTERPRETATION INCLUDES EVALUATION OF A CELL BLOCK. Pathologist ICD10: R18.8 Signed out by: Malina Wills MD, Pathologist NPI- [id number] Performed by: Armando Mendiola, Maintenance Of Way Supervisor ([facility]) Gross description: 50 CC, YELLOW, CLOUDY RECEIVED: FRESH IN BLUE CAP CONTAINER.VO /VDU 12/24/2024 0510 Local FLAG LEGEND: L-Low Normal,H-High Normal,LL-Alert Low,HH-Alert High <-Panic Low,>-Panic High,A-Abnormal,AA-Critical Abnormal Performed at: 01 =Z [facility] [address] [facility], [place] [address] Ventura Holcomb MD, Performed at: [address] [facility] [address] [facility], [place], [place] [id number] MD Ventura Holcomb MD Phone: [phone]
--- NOTE | 2024-12-21 16:15 | DI.US.S_ITS ---
PROCEDURE: US PARACENTESIS INDICATIONS: ASCITES TECHNIQUE: The indications, alternatives, benefits, risks, and complications of the procedure were explained to the patient. Written informed consent was obtained and placed in the chart. The abdomen and pelvis were examined sonographically, and an appropriate site was chosen for paracentesis. The skin was prepared and draped in the usual sterile fashion, and 1% lidocaine was infiltrated from the skin down through the peritoneal surface. A 19-gauge catheter-covered needle was then introduced into the peritoneal space, the catheter was advanced and the needle was withdrawn, and thereafter peritoneal fluid was withdrawn. The catheter was then removed and a dressing was applied. The fluid was discarded if the clinician did not order diagnostic testing of the fluid. COMPARISON: [facility], PARACENTESIS, 12/03/2024, 13:36. FINDINGS: Access site: Right lower quadrant Needle: One-Step centesis catheter with introducer needle. Fluid volume and description: 4.2 L of clear peritoneal fluid. Fluid sent for diagnostic testing: Cytology and therapeutic drainage. Medications: 1% lidocaine for local anaesthesia. Complications: None. IMPRESSION: Successful ultrasound-guided paracentesis. Dictated by: Chaim Amezquita [facility] Interpreted: Chico Leonard MD on 12/24/2024 at 12:54 Transcribed by: Edwin on 12/24/2024 at 12:55 Approved by: Chico Leonard M.D. on 01/04/2025 at 10:45
[2024-12-21 16:23] VITALS: BP 136/73; PULSE 81; RESP 19; O2SAT 97
[2024-12-21 17:00] VITALS: BP 136/73; PULSE 81; RESP 17; O2SAT 97
== END 2024-12-21 17:26 | disposition home or self-care (01) ==
PROVIDERS: Family Provider Nurse Practitioner Family; PCP Family Medicine; Referring Provider Internal Medicine Gastroenterology; Visit Provider Internal Medicine Gastroenterology
DX: K70.31 Alcoholic cirrhosis of liver with ascites (principal)
CPT/HCPCS: 49083

== ENCOUNTER 2024-12-26 10:10 | Outpatient (CLI) | payer OTHER, SELFPAY ==
[2024-09-17 21:12] VITALS: BMI 27.8
--- NOTE | 2024-12-26 10:11 | DI.US.S_ITS ---
PROCEDURE: US PARACENTESIS W/ALBUMIN INDICATIONS: Ascites TECHNIQUE: The indications, alternatives, benefits, risks, and complications of the procedure were explained to the patient. Written informed consent was obtained and placed in the chart. The abdomen and pelvis were examined sonographically, and an appropriate site was chosen for paracentesis. The skin was prepared and draped in the usual sterile fashion, and 1% lidocaine was infiltrated from the skin down through the peritoneal surface. A 19-gauge catheter-covered needle was then introduced into the peritoneal space, the catheter was advanced and the needle was withdrawn, and thereafter peritoneal fluid was withdrawn. The catheter was then removed and a dressing was applied. The fluid was discarded if the clinician did not order diagnostic testing of the fluid. COMPARISON: [facility], PARACENTESIS W/ALBUMIN, 12/10/2024, 13:06. FINDINGS: Access site: Right lower quadrant Needle: One-Step centesis catheter with introducer needle. Fluid volume and description: 3.350 L of chylous heather fluid. 50 cc were sent for diagnostic paracentesis. Fluid sent for diagnostic testin cc Medications: 1% lidocaine for local anaesthesia. Complications: None. IMPRESSION: Successful ultrasound-guided paracentesis. Dictated by: Chico eLonard M.D. on 12/26/2024 at 14:54 Approved by: Chico Leonard M.D. on 12/26/2024 at 14:55
[2024-12-26 12:17] LABS: Hematocrit 39.2 % (41-53); Hemoglobin 13.1 g/dL (13.5-17.5); Mean Corpuscular HGB Conc 33.5 % (30-36); Mean Corpuscular Hemoglobin 27.5 PG (26-34); Mean Corpuscular Volume 82.0 fL (80-100); Platelet Count 140 X10^3/uL (150-400)
[2024-12-26 12:18] LABS: INR 1.2 (0.9-1.3); Prothrombin Time 13.8 SECONDS (9.4-12.5)
[2024-12-26 12:45] VITALS: BP 151/77; PULSE 80; RESP 16; TEMP 36.6; O2SAT 100
[2024-12-26 13:04] VITALS: BP 136/74; PULSE 77; RESP 18; O2SAT 99
--- NOTE | 2024-12-26 13:08 | PATH_ITS ---
Note [facility] Accession Number: [id number] TESTS RESULT FLAG UNITS REF RANGE LAB Clinician Provided Cytology Information No. of containers..01 Other (Miscellaneous) Source: ASCITES DIAGNOSIS: ASCITIC FLUID, PARACENTESIS. NEGATIVE FOR MALIGNANT CELLS. GROUPS OF REACTIVE MESOTHELIAL CELLS ARE PRESENT. THIS INTERPRETATION INCLUDES EVALUATION OF A CELL BLOCK. Pathologist ICD10: 01 R18.8 Signed out by: Nicole Herrmann MD, Pathologist NPI- [id number] Performed by: Clayton Diaz, Welder Assistant ([facility]) Gross description: 50 CC, YELLOW, CLOUDY Fresh in blue cap container. DANE FRANCIS 12/27/[address] [place] [address] FLAG LEGEND: L-Low Normal,H-High Normal,LL-Alert Low,HH-Alert High <-Panic Low,>-Panic High,A-Abnormal,AA-Critical Abnormal Performed at: 01 =Z [facility] [address] [facility], [place] [address] Ventura Holcomb MD, Performed at: 01 [facility] [address] [address], [place], [place] [id number] MD Ventura Holcomb MD Phone: [phone]
[2024-12-26 13:29] VITALS: BP 136/83; PULSE 76; RESP 16; O2SAT 99
== END 2024-12-26 13:34 | disposition home or self-care (01) ==
PROVIDERS: Student in an Organized Health Care Education/Training Program; Family Provider Nurse Practitioner Family; PCP Family Medicine; Referring Provider Physician Assistant; Visit Provider Physician Assistant
DX: K70.31 Alcoholic cirrhosis of liver with ascites (principal)
CPT/HCPCS: 49083; 85027; 85610

== ENCOUNTER → 2025-01-02 12:17 | Outpatient (CLI) | payer OTHER, SELFPAY ==
[2024-09-17 21:12] VITALS: BMI 27.8
--- NOTE | 2025-01-02 12:18 | DI.US.S_ITS ---
PROCEDURE: US PARACENTESIS W/ALBUMIN INDICATIONS: Ascites TECHNIQUE: The indications, alternatives, benefits, risks, and complications of the procedure were explained to the patient. Written informed consent was obtained and placed in the chart. The abdomen and pelvis were examined sonographically, and an appropriate site was chosen for paracentesis. The skin was prepared and draped in the usual sterile fashion, and 1% lidocaine was infiltrated from the skin down through the peritoneal surface. A 19-gauge catheter-covered needle was then introduced into the peritoneal space, the catheter was advanced and the needle was withdrawn, and thereafter peritoneal fluid was withdrawn. The catheter was then removed and a dressing was applied. COMPARISON: [facility], PARACENTESIS W/ALBUMIN, 12/26/2024, 12:53. FINDINGS: Access site: Left lower quadrant Needle: One-Step centesis catheter with introducer needle. Fluid volume and description: 3.50 L Fluid sent for diagnostic testin cc sent for cytology Medications: 1% lidocaine for local anaesthesia. Complications: None. IMPRESSION: Successful ultrasound-guided paracentesis. Dictated by: Sanjiv Clay M.D. on 01/02/2025 at 16:58 Approved by: Sanjiv Clay M.D. on 01/02/2025 at 16:59
[2025-01-02 13:15] VITALS: BP 136/75; PULSE 80; RESP 17; O2SAT 98
[2025-01-02 14:15] VITALS: BP 120/64; PULSE 70; RESP 16; O2SAT 99
== END ==
LOC: US 12:17
PROVIDERS: Family Provider Nurse Practitioner Family; PCP Family Medicine; Referring Provider Family Medicine; Visit Provider Physician Assistant
DX: K70.31 Alcoholic cirrhosis of liver with ascites (principal)
CPT/HCPCS: 49083

== ENCOUNTER 2025-01-09 12:16 | Outpatient (CLI) | payer OTHER, SELFPAY ==
[2024-09-17 21:12] VITALS: BMI 27.8
--- NOTE | 2025-01-09 12:17 | DI.US.S_ITS ---
PROCEDURE: US PARACENTESIS W/ALBUMIN INDICATIONS: ASCITES TECHNIQUE: The indications, alternatives, benefits, risks, and complications of the procedure were explained to the patient. Written informed consent was obtained and placed in the chart. The abdomen and pelvis were examined sonographically, and an appropriate site was chosen for paracentesis. The skin was prepared and draped in the usual sterile fashion, and 1% lidocaine was infiltrated from the skin down through the peritoneal surface. A 19-gauge catheter-covered needle was then introduced into the peritoneal space, the catheter was advanced and the needle was withdrawn, and thereafter peritoneal fluid was withdrawn. The catheter was then removed and a dressing was applied. The fluid was discarded if the clinician did not order diagnostic testing of the fluid. COMPARISON: [facility], PARACENTESIS W/ALBUMIN, 01/02/2025, 13:23. FINDINGS: Access site: Left lower quadrant Needle: One-Step paracentesis catheter with introducer needle. Fluid volume and description: 4500 mL clear yellow ascites fluid Fluid sent for diagnostic testing: No Medications: 1% lidocaine for local anaesthesia. Complications: None. IMPRESSION: Successful ultrasound-guided paracentesis. Dictated by: Lenny Driscoll M.D. on 01/09/2025 at 21:02 Approved by: Lenny Driscoll M.D. on 01/09/2025 at 21:03
[2025-01-09 12:30] VITALS: BP 136/75; PULSE 80; RESP 17; O2SAT 98
[2025-01-09 14:09] VITALS: BP 122/78; PULSE 71; RESP 18; O2SAT 98
== END 2025-01-09 14:13 | disposition home or self-care (01) ==
LOC: US 12:16
PROVIDERS: Family Provider Nurse Practitioner Family; PCP Family Medicine; Referring Provider Physician Assistant; Visit Provider Physician Assistant
DX: K70.31 Alcoholic cirrhosis of liver with ascites (principal)
CPT/HCPCS: 49083

== ENCOUNTER 2025-01-16 11:58 | Inpatient (IN) | payer OTHER, SELFPAY ==
[2024-09-17 21:12] VITALS: BMI 27.8
[2025-01-16] VITALS (13 sets, daily range): BP systolic 100–165; BP diastolic 62–85; PULSE 63–81; RESP 16–18; TEMP 36.1–36.6; O2SAT 97–100; BMI 28.4
--- NOTE | 2025-01-16 12:29 | EKG_ITS ---
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
[2025-01-16 12:38] LABS: Add Manual Diff / Slide Review NO; Hematocrit 39.4 % (41-53); Hemoglobin 13.2 g/dL (13.5-17.5); Lymphocytes Absolute Auto 1000 /uL (1100-4500); Mean Corpuscular HGB Conc 33.4 % (30-36); Mean Corpuscular Hemoglobin 27.7 PG (26-34); Mean Corpuscular Volume 82.7 fL (80-100); Platelet Count 139 X10^3/uL (150-400)
[2025-01-16 12:42] LABS: Alanine Aminotransferase 19 IU/L (<50); Albumin 3.5 g/dL (3.5-5.0); Albumin Globulin Ratio 1.0 (1.0-2.8); Alkaline Phosphatase 116 U/L (38-126); Blood Urea Nitrogen 12 mg/dL (9-20); Calcium 7.8 mg/dL (8.4-10.2); Carbon Dioxide 19 mmol/L (22-32); Chloride 99 mmol/L (98-107); Estimated Glomerular Filt Rate > 60 mL/min (>60); Globulin 3.4 g/dL (1.7-4.1); Glucose 143 mg/dL (70-99); HEMOLYSIS 15 (0-50); Lipase 71 U/L (23-300); Potassium 3.9 mmol/L (3.4-5.1); Sodium 128 mmol/L (137-145); Total Protein 6.9 g/dL (6.3-8.2)
[2025-01-16 12:58] LABS: INR 1.3 (0.9-1.3); Prothrombin Time 14.3 SECONDS (9.4-12.5)
[2025-01-16 13:01] LABS: PTT Partial Thromboplastin Tim 30 SECONDS (25.1-36.5)
--- NOTE | 2025-01-16 13:03 | DI.US.S_ITS ---
PROCEDURE: US PARACENTESIS INDICATIONS: ASCITES AND ABDOMINAL PAIN TECHNIQUE: The indications, alternatives, benefits, risks, and complications of the procedure were explained to the patient. Written informed consent was obtained and placed in the chart. The abdomen and pelvis were examined sonographically, and an appropriate site was chosen for paracentesis. The skin was prepared and draped in the usual sterile fashion, and 1% lidocaine was infiltrated from the skin down through the peritoneal surface. A 19-gauge catheter-covered needle was then introduced into the peritoneal space, the catheter was advanced and the needle was withdrawn, and thereafter peritoneal fluid was withdrawn. The catheter was then removed and a dressing was applied. The fluid was discarded if the clinician did not order diagnostic testing of the fluid. COMPARISON: [facility], PARACENTESIS, 12/21/2024, 16:29. FINDINGS: Access site: Left lower quadrant Needle: One-Step centesis catheter with introducer needle. Fluid volume and description: Clear/yellow, 1.975 liters Fluid sent for diagnostic testing: Yes Medications: 1% lidocaine for local anaesthesia. Complications: None. IMPRESSION: Successful ultrasound-guided paracentesis. Dictated by: Shekhar Reddy M.D. on 01/16/2025 at 15:50 Approved by: Shekhar Reddy M.D. on 01/16/2025 at 15:52
--- NOTE | 2025-01-16 13:04 | ED_ITS ---
HPI - Abdominal Pain General Chief Complaint: Abdominal Pain Stated Complaint: Needs Paracentesis Time Seen by Provider: 01/16/25 12:41 Source: patient, RN notes reviewed and old records reviewed Mode of arrival: Ambulatory Limitations: no limitations History of Present Illness HPI narrative: 54-year-old male history of cirrhosis and ascites who has been having regular outpatient paracentesis to radiology. Patient arrived today and states the order was not in place his last was 01/09/2025. He notes abdominal pain and distention with pain more on the right side where his prior taps were but he has been tapped on both sides in the past. He states it does not radiate a little bit over to the other side. He reports having had spontaneous bacterial peritonitis in the past and having a hospital admission for proximally week. He states this does not feel quite the same it is not as intense. He denies fevers. He has had some nausea states he did vomit this morning but states his belly is very distended. He denies any chest pain or shortness of breath. States he has been constipated he does take medication to help him have bowel movements but takes an oral narcotic daily was well. Denies any dysuria urgency or frequency. Denies any new swelling in his extremities. States he is on glipizide, was started on 2 water pills in the last week by Gastroenterology and on omeprazole daily. He states he has had a prior EGD which was negative for varices. States he quit alcohol 4 years prior. States occasional tobacco, no recreational drugs. He denies any allergies to medications. He has a tele visit with the accounting officer. Related Data Home Medications ?Medication ?Instructions ?Recorded ?Confirmed dicyclomine 10 mg capsule 10 mg PO 4XD PRN abdominal p ain 09/18/24 09/18/24 ferrous sulfate 325 mg (65 mg 325 mg PO QAM 09/18/24 0 09/18/24 iron) tablet naproxen sodium 220 mg capsule 220 mg PO BID PRN pain 09/18/24 09/18/24 (Aleve) spironolactone 25 mg tablet 25 mg PO DAILY 09/18/24 Previous Rx's ?Medication ?Instructions ?Recorded ciprofloxacin HCl 500 mg tablet 500 mg PO BID #14 tabs 09/21/24 (Cipro) oxycodone 5 mg capsule 5 mg PO Q8H PRN pain #14 cap s 09/21/24 Allergies Allergy/AdvReac Type Severity Reaction Status Date / Time lidocaine (From LidoPatch) AdvReac Mild Rash Verified 01/16/25 12:10 menthol (From LidoPatch) AdvReac Mild Rash Verified 01/16/25 12:10 Review of Systems Review of Systems ROS Unobtainable: All systems reviewed & are unremarkable except as noted in HPI and below Patient History Social History household members: children and none Smoking Status: Current some day smoker alcohol intake: never Smoking Status: Current some day smoker Exam Narrative Exam Narrative: GENERAL: Alert and oriented x three, moderate distress HEENT: Head normocephalic, atraumatic, EOMI, pupils reactive, face symmetric, moist mucous membranes NECK: Supple, full range of motion CARDIOVASCULAR: Regular rate and rhythm without murmurs, rubs or gallops. RESPIRATORY: Breath sounds equal bilaterally, no wheezes rales or rhonchi. No tachypnea or accessory muscle use. Speaks in full sentences. ABDOMEN: Soft, distended, no tenderness over the skin no warmth or erythema but patient is tender in his generalized abdomen. Normoactive bowel sounds all 4 quadrants. No guarding or rebound, rigidity, no mass : No CVA tenderness EXTREMITIES: Normal range of motion, no clubbing or edema. Neurovascularly intact NEUROLOGICAL: Cranial nerves II through XII grossly intact. Moving all extremities SKIN: Warm, dry, no petechiae, no rashes or lesions. Initial Vital Signs Initial Vital Signs: Vital Signs Temperature 97.8 F 01/16/25 11:59 Pulse Rate 76 01/16/25 11:59 Respiratory Rate 17 01/16/25 11:59 Blood Pressure 128/83 01/16/25 11:59 Pulse Oximetry 99 01/16/25 11:59 Oxygen Delivery Method Room Air 01/16/25 11:59 Course Orders Ordered: ED Orders 01/16/25 12:18 Complete Blood Count AUTO DIFF Stat Comprehensive Metabolic Panel Stat Lipase Stat PTT Partial Thromboplastin Guero Stat Prothrombin Time INR Stat 01/16/25 12:29 EKG-12 Lead Stat 01/16/25 13:03 US paracentesis Stat 01/16/25 13:31 Blood Culture Stat Cell Count w Diff Body Fluid Stat 01/16/25 13:57 Body Fluid Culture Stat 01/16/25 14:12 CT abdomen pelvis w con Stat Ondansetron HCl (Ondansetron 4 Mg/2 Ml Inj) 4 mg IV NOW PRN PRN Reason: Nausea And Vomiting Ondansetron HCl (Ondansetron 4 Mg Odt) 4 mg PO NOW PRN PRN Reason: Nausea And Vomiting Discontinued Medications Fentanyl (Fentanyl 100 Mcg/2 Ml Inj) 25 mcg IV NOW ONE Stop: 01/16/25 13:35 Last Admin: 01/16/25 13:53 Dose: 25 mcg Documented By: AMY Ceftriaxone Sodium 2,000 mg/ (Sodium Chloride) 100 mls @ 200 mls/hr IV NOW ONE Stop: 01/16/25 15:13 Last Admin: 01/16/25 15:27 Dose: 200 mls/hr Vital Signs Vital signs: Vital Signs - 8 hr 01/16/25 11:59 01/16/25 12:08 01/16/25 12:08 Temperature 97.8 F Pulse Rate 76 75 Respiratory Rate 17 Blood Pressure 128/83 128/83 Pulse Oximetry 99 99 Oxygen Delivery Method Room Air 01/16/25 12:30 01/16/25 12:30 01/16/25 13:00 Temperature Pulse Rate 72 Respiratory Rate Blood Pressure 121/85 147/84 H Pulse Oximetry 98 Oxygen Delivery Method 01/16/25 13:00 01/16/25 13:30 01/16/25 13:30 Temperature Pulse Rate 72 71 Respiratory Rate Blood Pressure 131/85 Pulse Oximetry 97 97 Oxygen Delivery Method 01/16/25 14:00 01/16/25 14:00 01/16/25 15:12 Temperature Pulse Rate 72 Respiratory Rate Blood Pressure 148/84 H 131/75 Pulse Oximetry 99 Oxygen Delivery Method 01/16/25 15:12 01/16/25 15:30 01/16/25 15:31 Temperature Pulse Rate 75 70 Respiratory Rate Blood Pressure 165/70 H Pulse Oximetry 98 98 Oxygen Delivery Method 01/16/25 15:31 Temperature Pulse Rate 73 Respiratory Rate Blood Pressure Pulse Oximetry 99 Oxygen Delivery Method MDM - Abdominal Pain Lab Data 01/16/25 12:18 01/16/25 12:18 Labs: Lab Results 01/16/25 01/16/25 Range/Units 12:18 13:45 WBC 5.5 (4.5-11.0) X10^3/uL RBC 4.76 (4.5-5.9) X10^6/uL Hgb 13.2 L (13.5-17.5) g/dL Hct 39.4 L (41-53) % MCV 82.7 (80-100) fL MCH 27.7 (26-34) PG MCHC 33.4 (30-36) % RDW 18.0 H (11.6-14.8) % Plt Count 139 L (150-400) X10^3/uL Neut % (Auto) 70.0 (50-75) % Lymph % (Auto) 17.7 L (25-40) % [place] % (Auto) 9.6 (3-14) % Eos % (Auto) 1.8 L (2-4) % Baso % (Auto) 0.9 (0-2) % Neut # (Auto) 3800 (5206-4228) /uL Lymph # (Auto) 1000 L (6448-7004) /uL [place] # (Auto) 500 (0-900) /uL Eos # (Auto) 100 (0-450) /uL Baso # (Auto) 0 (0-100) /uL PT 14.3 H (9.4-12.5) SECONDS INR 1.3 (0.9-1.3) APTT 30 (25.1-36.5) SECONDS Sodium 128 L (137-145) mmol/L Potassium 3.9 (3.4-5.1) mmol/L Chloride 99 (98-107) mmol/L Carbon Dioxide 19 L (22-32) mmol/L BUN 12 (9-20) mg/dL Creatinine 0.95 (0.66-1.25) mg/dL Estimated GFR > 60 (>60) mL/min BUN/Creatinine Ratio 12.6 (6-22) Glucose 143 H (70-99) mg/dL Calcium 7.8 L (8.4-10.2) mg/dL Total Bilirubin 1.1 (0.2-1.3) mg/dL AST 39 (17-59) IU/L ALT 19 (<50) IU/L Alkaline Phosphatase 116 (38-126) U/L Total Protein 6.9 (6.3-8.2) g/dL Albumin 3.5 (3.5-5.0) g/dL Globulin 3.4 (1.7-4.1) g/dL Albumin/Globulin Ratio 1.0 (1.0-2.8) Lipase 71 (23-300) U/L Fluid Color Yellow Fluid Appearance Slightly cloudy Fluid RBC 807 /uL Fld Tot Nucleated Cell 376 /uL Fluid Neutrophils % 2 % Fluid Lymphocytes % 31 % Fluid Meso/Macro/[place] % 67 % Body Fluid Clot No clots present ECG Data Attestation: I personally reviewed and interpreted this ECG as follows: Interpretation: Sinus rhythm rate of 72 NE 144 QRS is 70 QTC of [address] elevation or depression. MDM Narrative Medical decision making narrative: Patient's labs show white count of 5.5 hemoglobin is 13.2 appears consistent with priors platelets are 139 also appears consistent with priors. INR is 1.3. Chemistries shows sodium of 128 this is consistent with priors over the last couple of months, CO2 is 19 electrolytes are otherwise appropriate glucose is 143 calcium is low at 7.8, LFTs are normal. Peritoneal fluid slightly cloudy, 807 RBCs 376 total nucleated 2% neutrophils 31% lymphocytes 67% basal/macro. CT abdomen pelvis shows cirrhosis with scalp portal hypertension [id number] volume ascites. Some thickening noted within the peritoneal fat anteriorly similar to prior this may represent fluid interdigitating within the fat, peritoneal carcinomatosis is not entirely excluded. No discrete hepatic mass is identified. Patient has cirrhotic liver morphology but no masses in his single phase study. Patient had bedside paracentesis with Radiology tolerated well but only had 2 L out. Typically has 5 L. suspect his catheter migraine and outwards somewhat while he was in bed. Did not had sample for evaluation as patient complaining of abdominal pain to evaluate for SBP. Patient has noted pain that is seems to be more related to his right lower quadrant than anywhere else so CT abdomen pelvis was also obtained. Patient has tenderness on his abdomen he notes more in the right lower quadrant does not appear to have any cellulitis or skin changes he is tender throughout on exam. He is quite distended. Radiology kindly performed paracentesis for me today. Fluid collection shows elevated neutrophils concerning for potential SBP. Patient was covered with IV antibiotics. Culture is currently pending. Spoke with Dr. Chicas, hospitalist @ Discharge Plan Departure Patient Disposition: Admitted As Inpatient Clinical Impression: Ascites, SBP (spontaneous bacterial peritonitis) Admit Date/Time: 01/16/25 15:35 Admit Provider: Nicolás Chicas
[2025-01-16] MEDS: fentaNYL 100 MCG/2 ML INJ 25 MCG IV (13:53)
--- NOTE | 2025-01-16 14:12 | DI.CT.S_ITS ---
PROCEDURE: CT ABDOMEN PELVIS W CON INDICATIONS: RLQ pain TECHNIQUE: After the administration of intravenous contrast, axial sections acquired from the lung bases to the pubic symphysis. Coronal and sagittal reformats were performed. For radiation dose reduction, the following was used: automated exposure control, adjustment of mA and/or kV according to patient size. COMPARISON: [facility], CT, CT ABDOMEN PELVIS W CON, 09/17/2024, 9:20. FINDINGS: Image quality: Diagnostic. Lower Chest: Lung bases are clear. Coronary artery calcifications. ABDOMEN: Liver: Cirrhotic liver morphology. No masses on this single phase study. Gallbladder: Surgically absent. Biliary ducts: No biliary dilation. Pancreas: No ductal dilation. Spleen: Enlarged. Adrenal Glands: No adrenal nodules. Kidneys and Ureters: No hydronephrosis. No solid mass. No complex renal cystic lesion which requires follow up. Stomach and Bowel: Normal colonic caliber, without significant wall thickening. Peritoneum: Moderate to large volume ascites. Again seen peritoneal thickening, most pronounced anteriorly. No free air. Ventral Wall: Small umbilical hernia containing fat. Abdominal Nodes: No retroperitoneal or mesenteric adenopathy by size criteria. Vessels: Aorta and inferior vena cava are normal in size. Atherosclerotic vascular calcifications. PELVIS: Pelvic Organs: Unremarkable. Bladder: No bladder wall thickening, accounting for underdistention. Pelvic Nodes: No enlarged lymph nodes. Miscellaneous: No inguinal hernias are seen. Bones: No aggressive osseous abnormality. Mild degenerative changes. IMPRESSION: 1. Cirrhosis with sequela of portal hypertension including moderate to large volume ascites. 2. Some thickening is noted within the peritoneal fat anteriorly, similar to prior. This may represent fluid interdigitating within the fat, peritoneal carcinomatosis is not entirely excluded. 3. No discrete hepatic masses identified. 4. Please see above for additional findings. Dictated by: Shekhar Reddy M.D. on 01/16/2025 at 14:53 Approved by: Shekhar Reddy M.D. on 01/16/2025 at 15:04
[2025-01-16 14:38] LABS: Body Fluid Tot Nucleated Cells 376 /uL
[2025-01-16 14:48] LABS: Body Fluid Clotted? NO CLOTS PRESENT
[2025-01-16 14:57] LABS: Neutrophils Body Fluid 2 %
[2025-01-16 14:58] LABS: Lymphocytes Body Fluid 31 %; MESO/MACRO/MONO Body Fluid 67 %
[2025-01-16] MEDS: cefTRIAXone 2,000 MG in SODIUM CHLORIDE 0.9% 100 ML 200 MG IV (15:27)
--- NOTE | 2025-01-16 16:24 | P.HP_ITS ---
History of Present Illness History of Present Illness Chief complaint: Needs Paracentesis Narrative: The patient was a 54-year-old male with known history of cirrhosis and recurrent ascites. He was scheduled to have his regular outpatient paracentesis today. Apparently the order was not in place. He went to the ER and also noted he was had 4 days of abdominal pain which has been relatively severe. The patient was tapped, had 2 L out and white cells were over 350. He was diagnosed with a presumptive spontaneous bacterial peritonitis and given IV antibiotics. Blood and ascites cultures were sent. The patient has been taking oxycodone for the last day and a half with minimal relief of his right upper quadrant abdomen pain. The paracentesis improved his pain minimally. No fevers, chills, some nausea, no vomiting. No diarrhea. He has been constipated. [facility] Social History household members: children and none alcohol intake: former Meds Home Medications and Allergies Home Medications ?Medication ?Instructions ?Recorded ?Confirmed ?Type dicyclomine 10 mg capsule 10 mg PO 4XD PRN abdominal p ain 09/18/24 09/18/24 History ferrous sulfate 325 mg (65 mg 325 mg PO QAM 09/18/24 0 09/18/24 History iron) tablet naproxen sodium 220 mg capsule 220 mg PO BID PRN pain 09/18/24 09/18/24 History (Aleve) spironolactone 25 mg tablet 25 mg PO DAILY 09/18/24 History ciprofloxacin HCl 500 mg tablet 500 mg PO BID #14 tabs 09/21/24 Rx (Cipro) oxycodone 5 mg capsule 5 mg PO Q8H PRN pain #14 cap s 09/21/24 Rx Allergies Allergy/AdvReac Type Severity Reaction Status Date / Time lidocaine (From LidoPatch) AdvReac Mild Rash Verified 01/16/25 12:10 menthol (From LidoPatch) AdvReac Mild Rash Verified 01/16/25 12:10 Review of Systems Review of Systems Narrative: All else reviewed and otherwise unremarkable except as noted in the history and physical. Exam Vital Signs (past 8 hours): - 01/16/25 11:59 01/16/25 12:08 01/16/25 12:08 Temperature 97.8 F Pulse Rate 76 75 Respiratory Rate 17 Blood Pressure 128/83 128/83 Pulse Oximetry 99 99 Oxygen Delivery Method Room Air 01/16/25 12:30 01/16/25 12:30 01/16/25 13:00 Temperature Pulse Rate 72 Respiratory Rate Blood Pressure 121/85 147/84 H Pulse Oximetry 98 Oxygen Delivery Method 01/16/25 13:00 01/16/25 13:30 01/16/25 13:30 Temperature Pulse Rate 72 71 Respiratory Rate Blood Pressure 131/85 Pulse Oximetry 97 97 Oxygen Delivery Method 01/16/25 14:00 01/16/25 14:00 01/16/25 15:12 Temperature Pulse Rate 72 Respiratory Rate Blood Pressure 148/84 H 131/75 Pulse Oximetry 99 Oxygen Delivery Method 01/16/25 15:12 01/16/25 15:30 01/16/25 15:31 Temperature Pulse Rate 75 70 Respiratory Rate Blood Pressure 165/70 H Pulse Oximetry 98 98 Oxygen Delivery Method 01/16/25 15:31 Temperature Pulse Rate 73 Respiratory Rate Blood Pressure Pulse Oximetry 99 Oxygen Delivery Method Oxygen Delivery Method Room Air Narrative Exam Narrative: NAD, alert and oriented, fluent speech, calm. Normocephalic skull, EOMI, anicteric sclera, symmetric pupils. Oropharynx unremarkable, no droop. Neck supple, midline trachea, no adenopathy. Lungs clear, normal rate and effort. Heart regular, no murmur gallop or rub. Abdomen is fairly distended and nontender. Extremities are free of edema. Skin is free of rash or lesions. Joints are not swollen or deformed. Judgment appears to be normal. Objective Imaging CT scan - abdomen: Radiologist's impression: 1. Cirrhosis with sequela of portal hypertension including moderate to large volume ascites. 2. Some thickening is noted within the peritoneal fat anteriorly, similar to prior. This may represent fluid interdigitating within the fat, peritoneal carcinomatosis is not entirely excluded. 3. No discrete hepatic masses identified. 4. Please see above for additional findings. Labs 01/16/25 12:18 01/16/25 12:18 Labs: Laboratory Results - last 24 hr 01/16/25 01/16/25 12:18 13:45 WBC 5.5 RBC 4.76 Hgb 13.2 L Hct 39.4 L MCV 82.7 MCH 27.7 MCHC 33.4 RDW 18.0 H Plt Count 139 L Neut % (Auto) 70.0 Lymph % (Auto) 17.7 L [place] % (Auto) 9.6 Eos % (Auto) 1.8 L Baso % (Auto) 0.9 Neut # (Auto) 3800 Lymph # (Auto) 1000 L [place] # (Auto) 500 Eos # (Auto) 100 Baso # (Auto) 0 PT 14.3 H INR 1.3 APTT 30 Sodium 128 L Potassium 3.9 Chloride 99 Carbon Dioxide 19 L BUN 12 Creatinine 0.95 Estimated GFR > 60 BUN/Creatinine Ratio 12.6 Glucose 143 H Calcium 7.8 L Total Bilirubin 1.1 AST 39 ALT 19 Alkaline Phosphatase 116 Total Protein 6.9 Albumin 3.5 Globulin 3.4 Albumin/Globulin Ratio 1.0 Lipase 71 Fluid Color Yellow Fluid Appearance Slightly cloudy Fluid RBC 807 Fld Tot Nucleated Cell 376 Fluid Neutrophils % 2 Fluid Lymphocytes % 31 Fluid Meso/Macro/[place]ke % 67 Body Fluid Clot No clots present Assessment & Plan Assessment & Plan narrative: 1. Abdominal pain and SBP, active. 2. Cirrhosis, stable. 3. Distant alcohol use, not active. PLAN: -IV ceftriaxone Q 24 hours and follow ascites and blood cultures. -oxycodone and IV Dilaudid for pain. -anticipate discharge after approximately 2 midnights, supports inpatient status. Time-Based Coding :: 35 min spent with patient and on the chart (including review of chart, obtaining history, exam, reviewing outside data, placing orders, documenting exam and treatment plan, and counseling patient) on 01/16. Quality MIPS - Admit I confirm the patient?s Advance Care Plan is present, Code status is documented, Surrogate decision maker is in patient?s record [If Yes, STOP here]: Yes MIPS - Meds 'Current medications' to include all prescriptions, [id number] products, herbals, cannabis/cannabidiol products, and vitamin/mineral/dietary (nutritional) supplements. I have utilized all available resources to obtain, update, or review the patient?s current medications. [If Yes, STOP here]: Yes
--- NOTE | 2025-01-16 18:29 | PC.NURSE ---
Patient arrived from ED at 1625, VSS, afebrile on RA. He reports feeling hungry and minimal abdominal pain. MD at bedside evaluating patient and explaining plan of care. After eating 100% of meal patient c/o abd distention and increased pain. He has distended abdomen with hypoactive BS. He is oriened to room, unit routine, admission assessment completed, continuous monitoring.
[2025-01-17 04:47] LABS: Add Manual Diff / Slide Review NO; Hematocrit 38.6 % (41-53); Hemoglobin 12.9 g/dL (13.5-17.5); Lymphocytes Absolute Auto 1000 /uL (1100-4500); Mean Corpuscular HGB Conc 33.3 % (30-36); Mean Corpuscular Hemoglobin 27.8 PG (26-34); Mean Corpuscular Volume 83.3 fL (80-100); Platelet Count 134 X10^3/uL (150-400)
[2025-01-17 04:59] LABS: Blood Urea Nitrogen 13 mg/dL (9-20); Calcium 7.5 mg/dL (8.4-10.2); Carbon Dioxide 20 mmol/L (22-32); Chloride 101 mmol/L (98-107); Estimated Glomerular Filt Rate > 60 mL/min (>60); Glucose 141 mg/dL (70-99); HEMOLYSIS < 15 (0-50); Potassium 4.1 mmol/L (3.4-5.1); Sodium 129 mmol/L (137-145)
[2025-01-17] MEDS: PANTOPRAZOLE DR 40 MG TABLET PO (06:36)
--- NOTE | 2025-01-17 07:47 | PM.PN.1 ---
Subjective Subjective Interval history: Summary: The patient was a 54-year-old male with known history of cirrhosis and recurrent ascites. He was scheduled to have his regular outpatient paracentesis today. Apparently the order was not in place. He went to the ER and also noted he was had 4 days of abdominal pain which has been relatively severe. The patient was tapped, had 2 L out and white cells were over 350. He was diagnosed with a presumptive spontaneous bacterial peritonitis and given IV antibiotics. Blood and ascites cultures were sent. The patient has been taking oxycodone for the last day and a half with minimal relief of his right upper quadrant abdomen pain. The paracentesis improved his pain minimally. No fevers, chills, some nausea, no vomiting. No diarrhea. He has been constipated. S: He was somewhat improved today. His abdomen remains quite distended. No nausea. He was not had a bowel movement. O: NAD, alert and oriented. Fluent speech. Lungs are clear, normal rate and effort. Heart is regular, no murmur gallop or rub. Abdomen is soft, non distended. Extremities are free of edema. A/P: 1. Abdominal pain and SBP, active. 2. Cirrhosis, stable. 3. Distant alcohol use, not active. PLAN: -continue IV ceftriaxone Q 24 hours and follow ascites and blood cultures. -oxycodone and IV Dilaudid for pain. -anticipate discharge after approximately 2 midnights, supports inpatient status. -add lidocaine topically 2 abdomen per his request. Add lactulose b.i.d. as needed constipation. GIORGIO; 01/18. Exam Vital Signs (past 8 hours): Oxygen Delivery Method Room Air Objective Labs 01/17/25 04:30 01/17/25 04:30 Labs: Laboratory Results - last 24 hr 01/16/25 01/16/25 01/17/25 12:18 13:45 04:30 WBC 5.5 5.3 RBC 4.76 4.64 Hgb 13.2 L 12.9 L Hct 39.4 L 38.6 L MCV 82.7 83.3 MCH 27.7 27.8 MCHC 33.4 33.3 RDW 18.0 H 18.3 H Plt Count 139 L 134 L Neut % (Auto) 70.0 66.7 Lymph % (Auto) 17.7 L 19.0 L [place] % (Auto) 9.6 10.4 Eos % (Auto) 1.8 L 2.2 Baso % (Auto) 0.9 1.7 Neut # (Auto) 3800 3500 Lymph # (Auto) 1000 L 1000 L [place] # (Auto) 500 500 Eos # (Auto) 100 100 Baso # (Auto) 0 100 PT 14.3 H INR 1.3 APTT 30 Sodium 128 L 129 L Potassium 3.9 4.1 Chloride 99 101 Carbon Dioxide 19 L 20 L BUN 12 13 Creatinine 0.95 0.91 Estimated GFR > 60 > 60 BUN/Creatinine Ratio 12.6 14.3 Glucose 143 H 141 H Calcium 7.8 L 7.5 L Total Bilirubin 1.1 AST 39 ALT 19 Alkaline Phosphatase 116 Total Protein 6.9 Albumin 3.5 Globulin 3.4 Albumin/Globulin Ratio 1.0 Lipase 71 Fluid Color Yellow Fluid Appearance Slightly cloudy Fluid RBC 807 Fld Tot Nucleated Cell 376 Fluid Neutrophils % 2 Fluid Lymphocytes % 31 Fluid Meso/Macro/[place] % 67 Body Fluid Clot No clots present [facility] Social History household members: children and none Smoking Status: Current some day smoker alcohol intake: former Assessment & Plan Time-Based Coding :: [TOTAL MINUTES] spent with patient and on the chart (including review of chart, obtaining history, exam, reviewing outside data, placing orders, documenting exam and treatment plan, and counseling patient) on [DATE]. Quality VTE Deep Vein Thrombosis/Pulmonary Embolism Present on Admission: No
[2025-01-17 08:00] VITALS: BP 118/64; PULSE 77; RESP 19; TEMP 36.2; O2SAT 98
[2025-01-17] MEDS: cefTRIAXone 2,000 MG in SODIUM CHLORIDE 0.9% 100 ML 200 MG IV (08:42)
[2025-01-17] MEDS: SPIRONOLACTONE 25 MG TABLET PO (08:44)
[2025-01-17] MEDS: FUROSEMIDE 20 MG TABLET PO (08:44)
--- NOTE | 2025-01-17 09:15 | CM.DANOTE ---
Initial DCP Assessment Note Pt is a 54 yo male, resident of [place], hx of of cirrhosis and ascites, quit drinking years ago, receives regular outpatient paracentesis, patient arrives complaining of abdominal pain and distention. Reviewed chart, patient lives independently on [place]. Admission assessment notes patient is unable to work and would benefit from community resources. Will plan to provide information for Maylin Rodriguez Domenica [facility] P [phone] on Tuesday. No barriers identified at this time to patient's safe discharge home w/family to assist as needed; close outpatient f/u recommended. Social work team will plan to follow clinical course closely in case any other DC needs or concerns arise. GAURAV Arellano Discharge Planning/Care Management CM Discharge Assessment Start: 01/16/25 16:23 Freq: Status: Active Protocol: Document 01/17/25 09:09 SUSAN (Rec: 01/17/25 09:15 SUSAN [id number]) Discharge Planning Assessment Assigned Discharge GAURAV [employer] Cur[employer] Provider Johnny Kwan, [place] Insurance Comment Jose SIMON DPOA/Assigned hector [place] Designee Name Contact Information [phone] Advance Directives? No History Provided By Patient Household Members children,none Independent with ADL Yes 's Is patient alert and Yes oriented? Discharge Plan Home Transportation Family Arrangement Referrals Initiated Other Additional Comment Information for Maylin Baptiste [facility] P [phone]
[2025-01-17] MEDS: DOCUSATE 100 MG CAPSULE PO ×2 (09:55→20:59)
[2025-01-17] MEDS: LACTULOSE 20 GM/30 ML SOLUTION PO ×2 (14:15→20:59)
[2025-01-17] MEDS: LIDOCAINE 2% (GLYDO) 6 ML GEL TOP (14:16)
--- NOTE | 2025-01-17 16:33 | PC.NURSE ---
Pt having continual abd pain, IV and PO pain medication along with added lidocaine gel. Pt finds the lidocaine gel very helpful. PRN lactulose added for constipation. Pt OOB to bathroom.
[2025-01-17 21:45] VITALS: BP 123/67; PULSE 82; RESP 18; TEMP 36.3; O2SAT 98
[2025-01-18] MEDS: PANTOPRAZOLE DR 40 MG TABLET PO (05:25)
[2025-01-18 05:27] LABS: Add Manual Diff / Slide Review NO; Hematocrit 38.1 % (41-53); Hemoglobin 12.8 g/dL (13.5-17.5); Lymphocytes Absolute Auto 1000 /uL (1100-4500); Mean Corpuscular HGB Conc 33.5 % (30-36); Mean Corpuscular Hemoglobin 27.7 PG (26-34); Mean Corpuscular Volume 82.9 fL (80-100); Platelet Count 127 X10^3/uL (150-400)
[2025-01-18 05:37] LABS: Blood Urea Nitrogen 12 mg/dL (9-20); Calcium 8.0 mg/dL (8.4-10.2); Carbon Dioxide 21 mmol/L (22-32); Chloride 99 mmol/L (98-107); Estimated Glomerular Filt Rate > 60 mL/min (>60); Glucose 131 mg/dL (70-99); HEMOLYSIS < 15 (0-50); Potassium 4.7 mmol/L (3.4-5.1); Sodium 129 mmol/L (137-145)
[2025-01-18 07:00] VITALS: BP 154/70; PULSE 70; RESP 18; O2SAT 99
--- NOTE | 2025-01-18 08:54 | DI.US.S_ITS ---
PROCEDURE: US PARACENTESIS INDICATIONS: ASCITIES TECHNIQUE: The indications, alternatives, benefits, risks, and complications of the procedure were explained to the patient. Written informed consent was obtained and placed in the chart. The abdomen and pelvis were examined sonographically, and an appropriate site was chosen for paracentesis. The skin was prepared and draped in the usual sterile fashion, and 1% lidocaine was infiltrated from the skin down through the peritoneal surface. A 19-gauge catheter-covered needle was then introduced into the peritoneal space, the catheter was advanced and the needle was withdrawn, and thereafter peritoneal fluid was withdrawn. The catheter was then removed and a dressing was applied. The fluid was discarded if the clinician did not order diagnostic testing of the fluid. COMPARISON: [facility], PARACENTESIS, 01/16/2025, 13:22. FINDINGS: Access site: Right lateral abdomen Needle: One-Step centesis catheter with introducer needle. Fluid volume and description: 4000 cc of clear fluid Fluid sent for diagnostic testing: No Medications: 1% lidocaine for local anaesthesia. Complications: None. IMPRESSION: Successful ultrasound-guided paracentesis. Dictated by: Bobby Garcia M.D. on 01/18/2025 at 15:07 Approved by: Bobby Garcia M.D. on 01/18/2025 at 15:09
[2025-01-18] MEDS: LACTULOSE 20 GM/30 ML SOLUTION PO (09:22)
[2025-01-18] MEDS: cefTRIAXone 2,000 MG in SODIUM CHLORIDE 0.9% 100 ML 200 MG IV (09:22)
[2025-01-18] MEDS: FUROSEMIDE 20 MG TABLET PO (09:23)
[2025-01-18] MEDS: SPIRONOLACTONE 25 MG TABLET PO (09:23)
[2025-01-18] MEDS: DOCUSATE 100 MG CAPSULE PO (09:23)
--- NOTE | 2025-01-18 12:21 | PM.DS.1 ---
History of Present Illness History of Present Illness Chief complaint: Needs Paracentesis Narrative: The patient was a 54-year-old male with known history of cirrhosis and recurrent ascites. He was scheduled to have his regular outpatient paracentesis today. Apparently the order was not in place. He went to the ER and also noted he was had 4 days of abdominal pain which has been relatively severe. The patient was tapped, had 2 L out and white cells were over 376. He was diagnosed with a presumptive spontaneous bacterial peritonitis and given IV antibiotics. Blood and ascites cultures were sent. The patient has been taking oxycodone for the last day and a half with minimal relief of his right upper quadrant abdomen pain. The paracentesis improved his pain minimally. No fevers, chills, some nausea, no vomiting. No diarrhea. He has been constipated. Discharge Providers Provider Date of admission: 01/16/25 15:35 Discharge Date: 01/18/25 Primary care physician: Johnny Kwan MD Discharge provider: Nicolás Chicas MD Summary Hospital Course Discharge Diagnosis: 1. Abdominal pain and SBP, improved. 2. Cirrhosis, stable. 3. Distant alcohol use, not active. Hospital Course: He was admitted with abdomen distention and underwent a paracentesis. He would elevated WBCs with 370. He was treated for SBP with ceftriaxone IV for 3 days. He would good improvement in his symptoms and underwent a therapeutic paracentesis in the day of discharge with 4 L of clear fluid. He will be started on Cipro indefinitely and follow up with PCP and [facility] next week. He does have recurrent paracenteses here and we will be monitored closely. He will resume his furosemide and spironolactone tomorrow. Fluid cultures were negative. Status at Discharge Cognitive/behavioral status at discharge: oriented Functional status at discharge: independent ambulation Overall status at discharge: patient is back to baseline Time Spent with Patient Time spent: Greater than 30 minutes Exam Vital Signs (past 8 hours): - 01/18/25 07:00 Pulse Rate 70 Respiratory Rate 18 Blood Pressure 154/70 H Pulse Oximetry 99 Oxygen Delivery Method Room Air Narrative Exam Narrative: NAD, alert and oriented. Fluent speech. Lungs are clear, normal rate and effort. Heart is regular, no murmur gallop or rub. Abdomen is soft, non distended. Extremities are free of edema. Objective Imaging CT scan - abdomen: Radiologist's impression: 1. Cirrhosis with sequela of portal hypertension including moderate to large volume ascites. 2. Some thickening is noted within the peritoneal fat anteriorly, similar to prior. This may represent fluid interdigitating within the fat, peritoneal carcinomatosis is not entirely excluded. 3. No discrete hepatic masses identified. 4. Please see above for additional findings. Labs 01/18/25 04:40 01/18/25 04:40 Labs: Laboratory Results - last 24 hr 01/18/25 04:40 WBC 5.1 RBC 4.60 Hgb 12.8 L Hct 38.1 L MCV 82.9 MCH 27.7 MCHC 33.5 RDW 18.1 H Plt Count 127 L Neut % (Auto) 67.5 Lymph % (Auto) 18.7 L [place] % (Auto) 11.3 Eos % (Auto) 1.7 L Baso % (Auto) 0.8 Neut # (Auto) 3400 Lymph # (Auto) 1000 L [place] # (Auto) 600 Eos # (Auto) 100 Baso # (Auto) 0 Sodium 129 L Potassium 4.7 Chloride 99 Carbon Dioxide 21 L BUN 12 Creatinine 0.71 Estimated GFR > 60 BUN/Creatinine Ratio 16.9 Glucose 131 H Calcium 8.0 L PFSH Social History household members: children and none alcohol intake: former Discharge Assessment & Plan Assessment and Plan Assessment: 1. SBP. 2. Ascites. Plan of Treatment: Discharge home, Cipro 500 b.i.d. for secondary prophylaxis and close follow up with PCP. He was recurrent paracentesis here and can be monitored closely. He was also given oxycodone as needed pain 15. Discharge Plan Discharge Plan Patient Disposition: Home Provider Discharge Comment: Stable for discharge home with close follow up. Discharge orders & Medications Prescriptions: New oxycodone 10 mg tablet 10 mg PO Q8H PRN (Reason: pain) Qty: 15 0RF ciprofloxacin HCl [Cipro] 500 mg tablet 500 mg PO BID Qty: 60 1RF Continued spironolactone 25 mg tablet 25 mg PO DAILY Patient Comments: patient is unsure of med or dose. He states he takes two water pills every morning. naproxen sodium [Aleve] 220 mg capsule 220 mg PO BID PRN (Reason: pain) omeprazole 40 mg capsule,delayed release(DR/EC) 40 mg PO DAILY furosemide 20 mg tablet 20 mg PO DAILY lidocaine 5 % ointment 1 applic topical DAILY PRN (Reason: pain) Qty: 30 2RF Discontinued oxycodone 5 mg capsule 5 mg PO Q8H PRN (Reason: pain) Qty: 14 0RF Medication counseling provided by Pharmacist: No Follow up/Referrals: Johnny Kwan MD [Primary Care Provider, [facility]] Discharge Health Status Multidrug resistant organism: No MDRO Diet/Activity/Treatments Diet: Low-sodium Visit Report/Discharge Packet Instructions: DI for Peritonitis Stand Alone Forms: Patient Portal/API Discharge Data Primary Care Provider: Johnny Kwan Quality VTE Deep Vein Thrombosis/Pulmonary Embolism Present on Admission: No
--- NOTE | 2025-01-18 13:01 | PC.NURSE ---
Pt A/O . States some discomfort in abdomen, Pt had percenties this morning, stated 4000cc collected. Orders for D/C received. SL D/C intact. D/C instructions given w/ apparent understanding. Pt escorted ambulatory w/ staff to waiting vehicle. D/C in stable status.
== END 2025-01-18 13:07 | disposition home or self-care (01) | DRG 248 ==
LOC: ED 12:41 → AC 15:36
PROVIDERS: Admitting Provider Hospitalist; Emergency Provider Emergency Medicine; Family Provider Nurse Practitioner Family; PCP Family Medicine; Referring Provider Emergency Medicine; Visit Provider Hospitalist
DX: K65.2 Spontaneous bacterial peritonitis (principal); R18.8 Other ascites; F17.200 Nicotine dependence, unspecified, uncomplicated; K74.60 Unspecified cirrhosis of liver; F10.91 Alcohol use, unspecified, in remission
CPT/HCPCS: 36415; 49083; 74177; 80048; 80053; 83690; 85025; 85610; 85730; 87040; 87070; 87075; 87186; 87205; 89051; 93005; 96365; 96375; 99284; J0696; J1171; J3010; J7050; Q9967

== ENCOUNTER 2025-01-23 07:36 | Outpatient (CLI) | payer OTHER, SELFPAY ==
[2025-01-16 16:27] VITALS: BMI 28.4
--- NOTE | 2025-01-23 | DI.US.S_ITS ---
PROCEDURE: US PARACENTESIS W/ALBUMIN INDICATIONS: ASCITES TECHNIQUE: The indications, alternatives, benefits, risks, and complications of the procedure were explained to the patient. Written informed consent was obtained and placed in the chart. The abdomen and pelvis were examined sonographically, and an appropriate site was chosen for paracentesis. The skin was prepared and draped in the usual sterile fashion, and 1% lidocaine was infiltrated from the skin down through the peritoneal surface. A 19-gauge catheter-covered needle was then introduced into the peritoneal space, the catheter was advanced and the needle was withdrawn, and thereafter peritoneal fluid was withdrawn. The catheter was then removed and a dressing was applied. The fluid was discarded if the clinician did not order diagnostic testing of the fluid. COMPARISON: [facility], PARACENTESIS W/ALBUMIN, 01/09/2025, 13:06. FINDINGS: Access site: Left lower quadrant Needle: One-Step centesis catheter with introducer needle. Fluid volume and description: 4700 mL. Cloudy yellow fluid. Fluid sent for diagnostic testing: No Medications: 1% lidocaine for local anaesthesia. Complications: None. IMPRESSION: Successful ultrasound-guided paracentesis. Dictated by: Sanjiv Clay M.D. on 01/23/2025 at 12:28 Approved by: Sanjiv Clay M.D. on 01/23/2025 at 12:30
[2025-01-23 08:45] VITALS: BP 143/90; PULSE 80; RESP 16; TEMP 36.8; O2SAT 98
[2025-01-23 09:09] VITALS: BP 122/72; PULSE 80; RESP 16; O2SAT 95
[2025-01-23 09:15] VITALS: BP 118/71; PULSE 80; RESP 16; O2SAT 95
[2025-01-23 09:30] VITALS: BP 118/66; PULSE 78; RESP 16; O2SAT 98
== END 2025-01-23 09:47 | disposition home or self-care (01) ==
LOC: US 07:37
PROVIDERS: Family Provider Nurse Practitioner Family; PCP Family Medicine; Referring Provider Physician Assistant; Visit Provider Physician Assistant
DX: K70.31 Alcoholic cirrhosis of liver with ascites (principal)
CPT/HCPCS: 49083

== ENCOUNTER 2025-01-30 07:40 | Outpatient (CLI) | payer OTHER, SELFPAY ==
[2025-01-16 16:27] VITALS: BMI 28.4
[2025-01-30] VITALS (12 sets, daily range): BP systolic 113–141; BP diastolic 63–81; PULSE 74–87; RESP 14–18; TEMP 36.7; O2SAT 96–99
--- NOTE | 2025-01-30 07:42 | DI.US.S_ITS ---
PROCEDURE: US PARACENTESIS W/ALBUMIN INDICATIONS: ASCITES TECHNIQUE: The indications, alternatives, benefits, risks, and complications of the procedure were explained to the patient. Written informed consent was obtained and placed in the chart. The abdomen and pelvis were examined sonographically, and an appropriate site was chosen for paracentesis. The skin was prepared and draped in the usual sterile fashion, and 1% lidocaine was infiltrated from the skin down through the peritoneal surface. A 19-gauge catheter-covered needle was then introduced into the peritoneal space, the catheter was advanced and the needle was withdrawn, and thereafter peritoneal fluid was withdrawn. The catheter was then removed and a dressing was applied. The fluid was discarded if the clinician did not order diagnostic testing of the fluid. COMPARISON: [facility], PARACENTESIS W/ALBUMIN, 01/23/2025, 8:56. FINDINGS: Access site: Left lower quadrant of the abdomen Needle: One-Step paracentesis catheter with introducer needle. Fluid volume and description: 6550 mL cloudy yellow fluid Fluid sent for diagnostic testing: No Medications: 1% lidocaine for local anaesthesia. Complications: None. IMPRESSION: Successful ultrasound-guided paracentesis. Dictated by: Lenny Driscoll M.D. on 01/30/2025 at 12:18 Approved by: Lenny Driscoll M.D. on 01/30/2025 at 12:20
[2025-01-30] MEDS: ALBUMIN HUMAN 50 GM/200 ML VIAL IV (09:13)
== END 2025-01-30 10:55 | disposition home or self-care (01) ==
PROVIDERS: Family Provider Nurse Practitioner Family; PCP Family Medicine; Referring Provider Family Medicine; Visit Provider Physician Assistant
DX: K70.31 Alcoholic cirrhosis of liver with ascites (principal)
CPT/HCPCS: 49083; 96365; 96366; P9041

== ENCOUNTER 2025-02-06 12:26 | Outpatient (CLI) | payer OTHER, SELFPAY ==
[2025-01-16 16:27] VITALS: BMI 28.4
[2025-02-06] VITALS (9 sets, daily range): BP systolic 121–160; BP diastolic 71–85; PULSE 73–84; RESP 14–18; TEMP 36.3; O2SAT 98–100
--- NOTE | 2025-02-06 12:27 | DI.US.S_ITS ---
PROCEDURE: US PARACENTESIS W/ALBUMIN INDICATIONS: Ascites TECHNIQUE: The indications, alternatives, benefits, risks, and complications of the procedure were explained to the patient. Written informed consent was obtained and placed in the chart. The abdomen and pelvis were examined sonographically, and an appropriate site was chosen for paracentesis. The skin was prepared and draped in the usual sterile fashion, and 1% lidocaine was infiltrated from the skin down through the peritoneal surface. A 19-gauge catheter-covered needle was then introduced into the peritoneal space, the catheter was advanced and the needle was withdrawn, and thereafter peritoneal fluid was withdrawn. The catheter was then removed and a dressing was applied. The fluid was discarded if the clinician did not order diagnostic testing of the fluid. COMPARISON: [facility], PARACENTESIS W/ALBUMIN, 01/30/2025, 8:19. FINDINGS: Access site: Left lower quadrant of the abdomen Needle: One-Step paracentesis catheter with introducer needle. Fluid volume and description: 5700 mL clear yellow fluid Fluid sent for diagnostic testing: No, none requested Medications: 1% lidocaine for local anaesthesia. Complications: None. IMPRESSION: Successful ultrasound-guided paracentesis. Dictated by: Lenny Driscoll M.D. on 02/06/2025 at 15:46 Approved by: Lenny Driscoll M.D. on 02/06/2025 at 15:48
[2025-02-06] MEDS: ALBUMIN HUMAN 25 GM/100 ML VIAL IV ×2 (14:10→14:53)
== END 2025-02-06 15:42 | disposition home or self-care (01) ==
LOC: US 12:27
PROVIDERS: Family Provider Nurse Practitioner Family; PCP Family Medicine; Referring Provider Physician Assistant; Visit Provider Physician Assistant
DX: K70.31 Alcoholic cirrhosis of liver with ascites (principal)
CPT/HCPCS: 49083; 96365; 96366; P9041

== ENCOUNTER 2025-02-15 07:33 | Outpatient (CLI) | payer OTHER, SELFPAY ==
[2025-01-16 16:27] VITALS: BMI 28.4
--- NOTE | 2025-02-15 07:34 | DI.US.S_ITS ---
PROCEDURE: US PARACENTESIS W/ALBUMIN INDICATIONS: cirrhosis TECHNIQUE: The indications, alternatives, benefits, risks, and complications of the procedure were explained to the patient. Written informed consent was obtained and placed in the chart. The abdomen and pelvis were examined sonographically, and an appropriate site was chosen for paracentesis. The skin was prepared and draped in the usual sterile fashion, and 1% lidocaine was infiltrated from the skin down through the peritoneal surface. A 19-gauge catheter-covered needle was then introduced into the peritoneal space, the catheter was advanced and the needle was withdrawn, and thereafter peritoneal fluid was withdrawn. The catheter was then removed and a dressing was applied. The fluid was discarded if the clinician did not order diagnostic testing of the fluid. COMPARISON: [facility], PARACENTESIS W/ALBUMIN, 02/06/2025, 13:13. FINDINGS: Access site: Right lower quadrant Needle: One-Step centesis catheter with introducer needle. Fluid volume and description: 8800 L, clear yellow Fluid sent for diagnostic testing: None Medications: 1% lidocaine for local anaesthesia. Complications: None. IMPRESSION: Successful ultrasound-guided paracentesis. 8.8 L removed. Dictated by: Hedy QUINTERO Interpreted: Daljit Miner MD on 02/15/2025 at 13:31 Transcribed by: ABIMAEL on 02/15/2025 at 13:32 Approved by: Daljit Miner M.D. on 02/15/2025 at 13:41
[2025-02-15 08:45] VITALS: BP 133/92; PULSE 77; RESP 18; TEMP 36.3; O2SAT 99
[2025-02-15 09:01] LABS: Hematocrit 38.6 % (41-53); Hemoglobin 13.0 g/dL (13.5-17.5); Mean Corpuscular HGB Conc 33.7 % (30-36); Mean Corpuscular Hemoglobin 27.8 PG (26-34); Mean Corpuscular Volume 82.6 fL (80-100); Platelet Count 141 X10^3/uL (150-400)
[2025-02-15 09:21] LABS: INR 1.3 (0.9-1.3); Prothrombin Time 14.9 SECONDS (9.4-12.5)
[2025-02-15] MEDS: ALBUMIN HUMAN 25 GM/100 ML VIAL IV ×2 (09:30→10:10)
[2025-02-15 09:55] VITALS: BP 116/68; PULSE 78; RESP 19; O2SAT 99
[2025-02-15 10:51] VITALS: BP 116/70; PULSE 69; RESP 18; TEMP 36.3; O2SAT 97
== END 2025-02-15 10:53 | disposition home or self-care (01) ==
LOC: US 07:33
PROVIDERS: Family Provider Nurse Practitioner Family; PCP Family Medicine; Referring Provider Physician Assistant; Visit Provider Physician Assistant
DX: K70.31 Alcoholic cirrhosis of liver with ascites (principal)
CPT/HCPCS: 49083; 85027; 85610; 96365; 96366; P9041

== ENCOUNTER 2025-02-20 07:37 | Outpatient (CLI) | payer OTHER, SELFPAY ==
[2025-01-16 16:27] VITALS: BMI 28.4
--- NOTE | 2025-02-20 07:39 | DI.US.S_ITS ---
PROCEDURE: US PARACENTESIS W/ALBUMIN
[2025-02-20 08:03] VITALS: BP 122/75; PULSE 82; RESP 17; O2SAT 97
[2025-02-20 09:00] VITALS: BP 122/77; PULSE 80; RESP 14; O2SAT 98
[2025-02-20 10:06] VITALS: BP 121/69; PULSE 77; RESP 16; O2SAT 99
== END 2025-02-20 10:07 | disposition home or self-care (01) ==
LOC: US 07:38
PROVIDERS: Family Provider Nurse Practitioner Family; PCP Family Medicine; Referring Provider Family Medicine; Visit Provider Radiology Diagnostic Radiology
DX: K70.31 Alcoholic cirrhosis of liver with ascites (principal)
CPT/HCPCS: 49083; 96365; 96366; P9041

== ENCOUNTER 2025-02-27 07:32 | Outpatient (CLI) | payer OTHER, SELFPAY ==
[2025-01-16 16:27] VITALS: BMI 28.4
[2025-02-27] VITALS (9 sets, daily range): BP systolic 108–134; BP diastolic 62–77; PULSE 69–75; RESP 16; TEMP 36.3–36.6; O2SAT 96–99
--- NOTE | 2025-02-27 07:34 | DI.US.S_ITS ---
PROCEDURE: US PARACENTESIS W/ALBUMIN
[2025-02-27] MEDS: ALBUMIN HUMAN 50 GM/200 ML VIAL IV (09:00)
== END 2025-02-27 10:52 | disposition home or self-care (01) ==
LOC: US 07:32
PROVIDERS: Family Provider Nurse Practitioner Family; PCP Family Medicine; Referring Provider Internal Medicine Gastroenterology; Visit Provider Internal Medicine Gastroenterology
DX: K70.31 Alcoholic cirrhosis of liver with ascites (principal)
CPT/HCPCS: 49083; 96365; 96366; P9041

== ENCOUNTER → 2025-03-13 11:40 | Outpatient (CLI) | payer OTHER, SELFPAY ==
[2025-01-16 16:27] VITALS: BMI 28.4
[2025-03-13] VITALS (12 sets, daily range): BP systolic 130–141; BP diastolic 62–85; PULSE 70–80; RESP 20; TEMP 36.6–36.8; O2SAT 97–100
--- NOTE | 2025-03-13 11:44 | DI.US.S_ITS ---
PROCEDURE: US PARACENTESIS W/ALBUMIN INDICATIONS: Cirrhosis of liver with ascites TECHNIQUE: The indications, alternatives, benefits, risks, and complications of the procedure were explained to the patient. Written informed consent was obtained and placed in the chart. The abdomen and pelvis were examined sonographically, and an appropriate site was chosen for paracentesis. The skin was prepared and draped in the usual sterile fashion, and 1% lidocaine was infiltrated from the skin down through the peritoneal surface. A 19-gauge catheter-covered needle was then introduced into the peritoneal space, the catheter was advanced and the needle was withdrawn, and thereafter peritoneal fluid was withdrawn. The catheter was then removed and a dressing was applied. The fluid was discarded if the clinician did not order diagnostic testing of the fluid. COMPARISON: [facility], , PARACENTESIS W/ALBUMIN, 02/27/2025, 8:36. FINDINGS: Access site: Right lower quadrant Needle: One-Step centesis catheter with introducer needle. Fluid volume and description: 5.5 L of clear fluid. Fluid sent for diagnostic testing: None Medications: 1% lidocaine for local anaesthesia. Complications: None. IMPRESSION: Successful ultrasound-guided paracentesis. Dictated by: Casey Cox M.D. on 03/13/2025 at 15:59 Approved by: Casey Cox M.D. on 03/13/2025 at 15:59
[2025-03-13] MEDS: ALBUMIN HUMAN 50 GM/200 ML VIAL IV (15:47)
== END ==
LOC: US 11:41
PROVIDERS: Family Provider Nurse Practitioner Family; PCP Family Medicine; Referring Provider Family Medicine; Visit Provider Internal Medicine Gastroenterology
DX: K70.31 Alcoholic cirrhosis of liver with ascites (principal)
CPT/HCPCS: 49083; 96365; 96366; P9041

== ENCOUNTER 2025-03-20 07:36 | Outpatient (CLI) | payer OTHER, SELFPAY ==
[2025-01-16 16:27] VITALS: BMI 28.4
[2025-03-20] VITALS (7 sets, daily range): BP systolic 118–135; BP diastolic 68–78; PULSE 70–85; RESP 20; TEMP 36.6; O2SAT 98–100
--- NOTE | 2025-03-20 07:38 | DI.US.S_ITS ---
PROCEDURE: US PARACENTESIS INDICATIONS: Cirrhosis of liver with ascites TECHNIQUE: The indications, alternatives, benefits, risks, and complications of the procedure were explained to the patient. Written informed consent was obtained and placed in the chart. The abdomen and pelvis were examined sonographically, and an appropriate site was chosen for paracentesis. The skin was prepared and draped in the usual sterile fashion, and 1% lidocaine was infiltrated from the skin down through the peritoneal surface. A 19-gauge catheter-covered needle was then introduced into the peritoneal space, the catheter was advanced and the needle was withdrawn, and thereafter peritoneal fluid was withdrawn. The catheter was then removed and a dressing was applied. The fluid was discarded if the clinician did not order diagnostic testing of the fluid. COMPARISON: [facility], PARACENTESIS, 01/18/2025, 10:45. FINDINGS: Access site: Left lower quadrant of the abdomen Needle: One-Step paracentesis catheter with introducer needle. Fluid volume and description: 4900 mL clear yellow ascites Fluid sent for diagnostic testing: No Medications: 1% lidocaine for local anaesthesia. Complications: None. IMPRESSION: Successful ultrasound-guided paracentesis. Dictated by: Lenny Driscoll M.D. on 03/20/2025 at 13:18 Approved by: Lenny Driscoll M.D. on 03/20/2025 at 13:34
[2025-03-20 08:12] LABS: Hematocrit 36.6 % (41-53); Hemoglobin 12.7 g/dL (13.5-17.5); Mean Corpuscular HGB Conc 34.6 % (30-36); Mean Corpuscular Hemoglobin 28.8 PG (26-34); Mean Corpuscular Volume 83.0 fL (80-100); Platelet Count 154 X10^3/uL (150-400)
[2025-03-20 08:36] LABS: INR 1.3 (0.9-1.3); Prothrombin Time 14.7 SECONDS (9.4-12.5)
== END 2025-03-20 10:10 | disposition home or self-care (01) ==
LOC: US 07:36
PROVIDERS: Family Provider Nurse Practitioner Family; PCP Family Medicine; Referring Provider Internal Medicine Gastroenterology; Visit Provider Internal Medicine Gastroenterology
DX: K70.31 Alcoholic cirrhosis of liver with ascites (principal)
CPT/HCPCS: 49083; 85027; 85610

== ENCOUNTER 2025-03-27 13:53 | Outpatient (CLI) | payer OTHER, SELFPAY ==
[2025-01-16 16:27] VITALS: BMI 28.4
--- NOTE | 2025-03-27 13:54 | DI.US.S_ITS ---
PROCEDURE: US PARACENTESIS W/ALBUMIN INDICATIONS: Cirrhosis of liver with ascites TECHNIQUE: The indications, alternatives, benefits, risks, and complications of the procedure were explained to the patient. Written informed consent was obtained and placed in the chart. The abdomen and pelvis were examined sonographically, and an appropriate site was chosen for paracentesis. The skin was prepared and draped in the usual sterile fashion, and 1% lidocaine was infiltrated from the skin down through the peritoneal surface. A 19-gauge catheter-covered needle was then introduced into the peritoneal space, the catheter was advanced and the needle was withdrawn, and thereafter peritoneal fluid was withdrawn. The catheter was then removed and a dressing was applied. The fluid was discarded if the clinician did not order diagnostic testing of the fluid. COMPARISON: [facility], , PARACENTESIS W/ALBUMIN, 03/13/2025, 13:01. FINDINGS: Access site: Right lower quadrant Needle: One-Step centesis catheter with introducer needle. Fluid volume and description: 4.9 L, clear Fluid sent for diagnostic testing: No Medications: 1% lidocaine for local anaesthesia. Complications: None. IMPRESSION: Successful ultrasound-guided paracentesis. Dictated by: Shekhar Reddy M.D. on 03/28/2025 at 11:33 Approved by: Shekhar Reddy M.D. on 03/28/2025 at 11:34
[2025-03-27 14:11] VITALS: BP 137/75; PULSE 80; RESP 16; O2SAT 98
[2025-03-27 14:30] VITALS: BP 118/69; PULSE 79; RESP 17; O2SAT 95
[2025-03-27 15:00] VITALS: BP 116/68; PULSE 79; RESP 18; O2SAT 98
[2025-03-27 15:05] VITALS: BP 119/69; PULSE 80; RESP 18; O2SAT 98
== END 2025-03-27 15:58 | disposition home or self-care (01) ==
LOC: US 13:54
PROVIDERS: Family Provider Nurse Practitioner Family; PCP Family Medicine; Referring Provider Internal Medicine Gastroenterology; Visit Provider Internal Medicine Gastroenterology
DX: K70.31 Alcoholic cirrhosis of liver with ascites (principal)
CPT/HCPCS: 49083

== ENCOUNTER 2025-04-05 07:38 | Emergency (ER) | payer OTHER, SELFPAY ==
[2025-01-16 16:27] VITALS: BMI 28.4
[2025-04-05] VITALS (15 sets, daily range): BP systolic 96–131; BP diastolic 51–75; PULSE 57–69; RESP 16–20; TEMP 36.2; O2SAT 95–100; BMI 28.5
--- OUTSIDE RECORDS SUMMARY | 2025-04-05 07:41 | XMS_ITS | Encounter Summary ---
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 Name Role Phone Johnny Kwan MD Primary Care Provider Encounter Details Date Type Department Care Team (Late st Contact Info) Description 11/15/2022 Order Family Health Nurse Practitioner CARDIOLOGY - [place], [place] - [facility] [id number] [id number] Vadim De Paz, CHRISTY [address] [facility] [place], [place] [id number] Social History Tobacco Use Types Packs/Day Years Used Date Smoking Tobacco: Every Day Cigarettes Smokeless Tobacco: Current Alcohol Use Standard Drinks/Week Comments Yes 6 (1 standard drink = 0.6 oz pur e alcohol) Sex and Gender Information Value Date Recorded Sex Assigned at Male 08/07/2024 3:14 PM PDT Legal Sex Male 7:34 PM PST Gender Identity Male 08/07/2024 3:14 PM PDT Sexual Orientation Straight 08/07/2024 3: 14 PM PDT documented as of this encounter Plan of Treatment Not on file documented as of this encounter Visit Diagnoses Not on filedocumented in this encounter Care Teams Paper Cone Machine Operator Relationship Specialty Start Date End Date Johnny Kwan MD [address] [address] [place] [address] PCP - General Geriatric Medicine 08/19/22 documented as of this encounter
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
[2025-04-05 08:23] LABS: Add Manual Diff / Slide Review NO; Hematocrit 39.0 % (41-53); Hemoglobin 13.2 g/dL (13.5-17.5); Lymphocytes Absolute Auto 800 /uL (1100-4500); Mean Corpuscular HGB Conc 33.7 % (30-36); Mean Corpuscular Hemoglobin 28.6 PG (26-34); Mean Corpuscular Volume 84.8 fL (80-100); Platelet Count 140 X10^3/uL (150-400)
[2025-04-05 08:24] LABS: INR 1.3 (0.9-1.3); Prothrombin Time 14.3 SECONDS (9.4-12.5)
[2025-04-05] MEDS: MORPHINE 4 MG/ML INJ IV (08:29)
[2025-04-05 08:35] LABS: Alanine Aminotransferase 18 IU/L (<50); Albumin 3.5 g/dL (3.5-5.0); Albumin Globulin Ratio 1.0 (1.0-2.8); Alkaline Phosphatase 121 U/L (38-126); Blood Urea Nitrogen 11 mg/dL (9-20); Calcium 8.3 mg/dL (8.4-10.2); Carbon Dioxide 22 mmol/L (22-32); Chloride 98 mmol/L (98-107); Estimated Glomerular Filt Rate > 60 mL/min (>60); Globulin 3.4 g/dL (1.7-4.1); Glucose 123 mg/dL (70-99); HEMOLYSIS < 15 (0-50); Potassium 4.0 mmol/L (3.4-5.1); Sodium 130 mmol/L (137-145); Total Protein 6.9 g/dL (6.3-8.2)
--- NOTE | 2025-04-05 09:23 | DI.US.S_ITS ---
PROCEDURE: US PARACENTESIS INDICATIONS: Ascites TECHNIQUE: The indications, alternatives, benefits, risks, and complications of the procedure were explained to the patient. Written informed consent was obtained and placed in the chart. The abdomen and pelvis were examined sonographically, and an appropriate site was chosen for paracentesis. The skin was prepared and draped in the usual sterile fashion, and 1% lidocaine was infiltrated from the skin down through the peritoneal surface. A 19-gauge catheter-covered needle was then introduced into the peritoneal space, the catheter was advanced and the needle was withdrawn, and thereafter peritoneal fluid was withdrawn. The catheter was then removed and a dressing was applied. The fluid was discarded if the clinician did not order diagnostic testing of the fluid. COMPARISON: [facility], PARACENTESIS, 03/20/2025, 8:52. FINDINGS: Access site: Right lower quadrant Needle: One-Step centesis catheter with introducer needle. Fluid volume and description: 7400 cc, clear straw-colored. Fluid sent for diagnostic testing: None. Medications: 1% lidocaine for local anaesthesia. Complications: None. IMPRESSION: Successful ultrasound-guided therapeutic paracentesis. 7.4 L removed. Dictated by: Daljit Miner M.D. on 04/05/2025 at 14:49 Approved by: Daljit Miner M.D. on 04/05/2025 at 14:50
--- NOTE | 2025-04-05 09:25 | EKG_ITS ---
[address] [address] Test Date: 2025-04-05 Pat Name: Kristan Daley Department: [facility] Room: Gender: Male Manager Winter: MATT : 1970 Requested By: Order Number: [id number] Reading MD: Aniket Naranjo MD Measurements Intervals [place] Rate: 64 P: 18 WV: 136 QRS: -5 QRSD: 70 T: 25 QT: 402 QTc: 414 Interpretive Statements Normal sinus rhythm Low voltage QRS Electronically Signed On 04-05-2025 12:00:32 PST by Aniket Naranjo MD
[2025-04-05] MEDS: MORPHINE 2 MG/ML INJ 4 MG IV (09:48)
--- NOTE | 2025-04-05 10:01 | PC.NURSE ---
Pt is off the floor with DI RN at this time. report given, medicated for pain as requested before procedure.
[2025-04-05] MEDS: ALBUMIN HUMAN 50 GM/200 ML VIAL IV (10:45)
== END 2025-04-05 13:44 | disposition home or self-care (01) ==
PROVIDERS: Emergency Provider Student in an Organized Health Care Education/Training Program; Family Provider Nurse Practitioner Family; PCP Family Medicine
DX: R18.8 Other ascites (principal); I49.9 Cardiac arrhythmia, unspecified; Z98.890 Other specified postprocedural states
CPT/HCPCS: 36415; 49083; 80053; 85025; 85610; 93005; 93010; 96365; 96366; 96375; 96376; 99284; J2270; J2272; P9041

== ENCOUNTER 2025-04-10 11:46 | Outpatient (CLI) | payer OTHER, SELFPAY ==
[2025-01-16 16:27] VITALS: BMI 28.4
--- NOTE | 2025-04-10 11:47 | DI.US.S_ITS ---
PROCEDURE: US PARACENTESIS INDICATIONS: CIRRHOSIS TECHNIQUE: The indications, alternatives, benefits, risks, and complications of the procedure were explained to the patient. Written informed consent was obtained and placed in the chart. The abdomen and pelvis were examined sonographically, and an appropriate site was chosen for paracentesis. The skin was prepared and draped in the usual sterile fashion, and 1% lidocaine was infiltrated from the skin down through the peritoneal surface. A 19-gauge catheter-covered needle was then introduced into the peritoneal space, the catheter was advanced and the needle was withdrawn, and thereafter peritoneal fluid was withdrawn. The catheter was then removed and a dressing was applied. The fluid was discarded if the clinician did not order diagnostic testing of the fluid. COMPARISON: [facility], PARACENTESIS, 04/05/2025, 10:11. [facility], PARACENTESIS, 03/20/2025, 8:52. FINDINGS: Access site: Left lower quadrant Needle: One-Step centesis catheter with introducer needle. Fluid volume and description: 3.85 L straw-colored fluid Fluid sent for diagnostic testing: Not requested Medications: 1% lidocaine for local anaesthesia. Complications: None. IMPRESSION: Successful ultrasound-guided paracentesis. Approved by: Josias Falk M.D. on 04/10/2025 at 14:58
[2025-04-10 12:30] VITALS: BP 125/71; PULSE 74; RESP 16; TEMP 36.8; O2SAT 99
[2025-04-10 13:15] VITALS: BP 124/80; PULSE 77; RESP 16; O2SAT 99
[2025-04-10 13:30] VITALS: BP 119/70; PULSE 71; RESP 16; O2SAT 98
[2025-04-10 13:45] VITALS: BP 123/73; PULSE 73; RESP 15; O2SAT 99
[2025-04-10 14:00] VITALS: BP 121/78; PULSE 71; RESP 18; O2SAT 99
== END 2025-04-10 14:05 | disposition home or self-care (01) ==
LOC: US 11:46
PROVIDERS: PCP Family Medicine; Referring Provider Internal Medicine Gastroenterology; Visit Provider Internal Medicine Gastroenterology
DX: K70.31 Alcoholic cirrhosis of liver with ascites (principal)
CPT/HCPCS: 49083